=== PATIENT | female | born 1950 | race Caucasian/White ===

== ENCOUNTER 2019-03-07 11:17 | Outpatient (CLI) | payer MEDICARE, MEDICAID ==
[~2019-03-07 11:17] MED LIST: ACYC-202 PO; ALBU18HF2 INH; ALPR-624 PO; ASPI-1265 PO; ATEN-169 PO; ATOR40TA PO; CYCL-394 PO; DIPH-915 PO; DIPH1TAB PO; DIPH25CA83 PO; DOCU100C40 PO; ESTR10TA VG; FLUT1DIS INH; LOSA50TA3 PO; LYR25C PO; METF500T PO; MOME17SP NS; NITR0.4T51 SL; OMEP40CA13 PO; PER10325T PO; POTA8CAP20 PO; PRED20TA PO; PROM25TA14 PO; RANI-648 PO; RES15C PO; ROPI0.2534 PO
== END 2019-03-07 23:59 | disposition home or self-care (01) ==
LOC: RAD 11:17
PROVIDERS: ATTEND Physician Assistant Medical
DX: R55 Syncope and collapse (principal); R40.0 Somnolence; I10 Essential (primary) hypertension; J44.9 Chronic obstructive pulmonary disease, unspecified; F17.210 Nicotine dependence, cigarettes, uncomplicated; Z85.828 Personal history of other malignant neoplasm of skin; Z79.899 Other long term (current) drug therapy
CPT/HCPCS: 95819

== ENCOUNTER 2019-06-21 00:45 | Inpatient (IN) | payer MEDICARE, MEDICAID ==
[2019-06-21] VITALS (17 sets, daily range): BP systolic 106–149; BP diastolic 32–64
[~2019-06-21] VITALS: Ht 170.2 cm; Wt 72.7 kg
--- NOTE | 2019-06-21 00:54 | NUR ---
nitro patch removed
[2019-06-21 01:21] LABS: BASOPHILS # (AUTO) 0.1 X10'3 (0-0.2); BASOPHILS % (AUTO) 0.8 % (0-1); EOSINOPHILS # (AUTO) 0.1 X10'3 (0-0.9); EOSINOPHILS % (AUTO) 0.8 % (0-6); LYMPHOCYTES % (AUTO) 15.9 % (21-51); MEAN CORPUSCULAR HEMOGLOBIN 19.3 PG (27.0-31.0); MEAN CORPUSCULAR HGB CONC 30.2 g/dL (33.0-36.5); MEAN CORPUSCULAR VOLUME 63.7 FL (78-98); MONOCYTES # (AUTO) 1.2 X10'3 (0-0.9); MONOCYTES % (AUTO) 9.6 % (2-12); NEUTROPHILS # (AUTO) 9.2 X10'3 (1.8-7.7); NEUTROPHILS % (AUTO) 72.9 % (42-75); PLATELET COUNT 365 X10'3 (140-440); RED BLOOD COUNT 2.36 X10'6 (4.20-5.60); RED CELL DISTRIBUTION WIDTH 19.6 % (11.5-14.5); WHITE BLOOD COUNT 12.7 X10'3 (4.5-11.0)
[2019-06-21 01:22] LABS: PARTIAL THROMBOPLASTIN TIME 25 SECONDS (22-32)
[2019-06-21] MEDS ORDERED: AMLO2.5T2 PO (01:22)
[2019-06-21] MEDS ORDERED: GABA300C PO (01:22)
[2019-06-21] MEDS ORDERED: PHEN-887 PO (01:22)
[2019-06-21] MEDS ORDERED: LIDO700A32 TOP (01:22)
[2019-06-21] MEDS ORDERED: CYAN-51 PO (01:22)
[2019-06-21] MEDS ORDERED: MAGN296S50 PO (01:22)
[2019-06-21] MEDS ORDERED: APIX5TAB3 PO (01:26)
[2019-06-21 01:27] LABS: HEMOGLOBIN 4.5 g/dl (12.0-16.0)
[2019-06-21 01:28] LABS: ALANINE AMINOTRANSFERASE 16 U/L (12-78); ALBUMIN/GLOBULIN RATIO 0.9 (1.1-1.5); ALKALINE PHOSPHATASE 118 IU/L (46-116); ANION GAP 10 (8-16); ASPARTATE AMINO TRANSFERASE 16 U/L (10-37); BILIRUBIN,TOTAL 0.2 MG/DL (0.1-1.0); BLOOD UREA NITROGEN 11 MG/DL (7-18); BUN/CREATININE RATIO 13.8 (6.6-38.0); CALCIUM 8.6 MG/DL (8.5-10.1); CHLORIDE 106 MMOL/L (99-107); GLUCOSE 105 MG/DL (70-104); POTASSIUM 3.7 MMOL/L (3.5-5.1); SODIUM 140 MMOL/L (135-145); TOTAL CARBON DIOXIDE 23.6 MMOL/L (24-32); TOTAL PROTEIN 6.3 G/DL (6.4-8.2); eGFR 72 ML/MIN
[2019-06-21] MEDS ORDERED: tranexamic acid 100mg/ml inj. IV ONE (01:30)
[2019-06-21] MEDS ORDERED: TRANEXAMIC ACID 1 GM IN NACL,ISO-OS 100 ML IV ONE (01:35)
--- NOTE | 2019-06-21 02:22 | NUR ---
I tucked her into bed with warmed blankets and dimmed the lights with the call light on her pillow and she is comfy.
[2019-06-21 03:12] LABS: PLATELET ESTIMATE NORMAL
[2019-06-21 03:13] LABS: ELLIPTOCYTES 1+; HYPOCHROMASIA 3+
[2019-06-21 03:14] LABS: ANISOCYTOSIS 2+; MICROCYTOSIS 2+
[2019-06-21] MEDS ORDERED: morphine 2 MG/ML inj. syringe IV PRN (03:15)
[2019-06-21] MEDS ORDERED: nitroGLYCERIN 0.4mg SUBLingual tab SL PRN (03:20)
[2019-06-21] MEDS ORDERED: albuterol 2.5 MG/3 ML nebule NEB PRN (04:00)
[2019-06-21 04:09] LABS: CLARITY,URINE SLIGHTLY CLOUDY (Clear); COLOR,URINE YELLOW (Yellow); GLUCOSE, URINE NEGATIVE (Neg); KETONES,URINE NEGATIVE (Neg); LEUKOCYTE ESTERASE ,URINE NEGATIVE (Neg); NITRITES, URINE POSITIVE (Neg); OCCULT BLOOD,URINE NEGATIVE (Neg); PROTEIN,URINE NEGATIVE (Neg); UA COLLECTION TYPE CLN CATCH MIDSTREAM; UROBILINOGEN,URINE 0.2 E.U/dL (0.2-1.0)
--- NOTE | 2019-06-21 04:14 | NUR ---
pt arrived on PCU unit on a gurney from the ED, pt ambulated from gurney to bed. Pt is alert and oriented and does not seem to be in distress at this time. Will start IV fluids and continue to monitor pt
[2019-06-21 04:18] LABS: BACTERIA,URINE 3+ /HPF (Neg); RBC,URINE NONE SEEN /HPF (0-2); SQUAMOUS EPITHELIAL CELL,UR FEW /LPF (FEW); WBC,URINE 0-4 /HPF (0-4)
--- NOTE | 2019-06-21 04:45 | NUR ---
spoke with provider about possibly wanting to infuse another unit of blood with a Hgb of 4.5 and Hct of 15, order was to wait for results from AM labs, will continue to monitor pt
[2019-06-21] MEDS: normal saline 1000ml 1,000 ML IV SCH ×3 (05:02→17:41)
--- NOTE | 2019-06-21 06:00 | NUR ---
Problems reprioritized. Patient report given, questions answered & plan of care reviewed with Gaviota SUH.
[2019-06-21 06:20] LABS: BASOPHILS # (AUTO) 0.1 X10'3 (0-0.2); BASOPHILS % (AUTO) 0.5 % (0-1); EOSINOPHILS # (AUTO) 0.3 X10'3 (0-0.9); EOSINOPHILS % (AUTO) 2.3 % (0-6); LYMPHOCYTES # (AUTO) 2.3 X10'3 (1.1-4.8); LYMPHOCYTES % (AUTO) 20.1 % (21-51); MEAN CORPUSCULAR HEMOGLOBIN 21.3 PG (27.0-31.0); MEAN CORPUSCULAR HGB CONC 31.3 g/dL (33.0-36.5); MEAN CORPUSCULAR VOLUME 68.1 FL (78-98); MEAN PLATELET VOLUME 7.2 FL (7.4-10.4); MONOCYTES # (AUTO) 1.3 X10'3 (0-0.9); MONOCYTES % (AUTO) 11.7 % (2-12); NEUTROPHILS # (AUTO) 7.4 X10'3 (1.8-7.7); NEUTROPHILS % (AUTO) 65.4 % (42-75); PLATELET COUNT 323 X10'3 (140-440); RED BLOOD COUNT 2.77 X10'6 (4.20-5.60); RED CELL DISTRIBUTION WIDTH 23.6 % (11.5-14.5); WHITE BLOOD COUNT 11.3 X10'3 (4.5-11.0)
[2019-06-21 06:33] LABS: HEMATOCRIT 18.8 % (35.0-45.0); HEMOGLOBIN 5.9 g/dl (12.0-16.0)
--- NOTE | 2019-06-21 06:40 | NUR ---
Patient in room PCU 3022. I have received report from VIKASH Loyd and had the opportunity to ask questions and assume patient care. Patient alert and awake in bed. All needs met at this time. Will continue to monitor.
--- NOTE | 2019-06-21 06:44 | NUR ---
Critical Results Hgb 5.9 [address] Lora. No new orders.
[2019-06-21 06:59] LABS: ALANINE AMINOTRANSFERASE 15 U/L (12-78); ALBUMIN 2.9 G/DL (3.4-5.0); ALBUMIN/GLOBULIN RATIO 0.9 (1.1-1.5); ALKALINE PHOSPHATASE 111 IU/L (46-116); ANION GAP 9 (8-16); ASPARTATE AMINO TRANSFERASE 17 U/L (10-37); BLOOD UREA NITROGEN 8 MG/DL (7-18); BUN/CREATININE RATIO 10.8 (6.6-38.0); CALCIUM 8.1 MG/DL (8.5-10.1); CHLORIDE 105 MMOL/L (99-107); CREATININE 0.74 MG/DL (0.40-0.90); GLUCOSE 83 MG/DL (70-104); POTASSIUM 3.4 MMOL/L (3.5-5.1); SODIUM 139 MMOL/L (135-145); TOTAL CARBON DIOXIDE 25.2 MMOL/L (24-32); TOTAL PROTEIN 6.1 G/DL (6.4-8.2); eGFR 79 ML/MIN
[2019-06-21 07:29] LABS: ANISOCYTOSIS 3+; HYPOCHROMASIA 2+; MICROCYTOSIS 2+; PLATELET ESTIMATE NORMAL
[2019-06-21 07:34] LABS: POLYCHROMASIA FEW; SCHISTOCYTES FEW
[2019-06-21 07:35] LABS: ELLIPTOCYTES FEW
[2019-06-21] MEDS: LIDOcaine 5% patch TP SCH (08:00)
[2019-06-21] MEDS: albuterol 2.5 MG/3 ML nebule NEB SCH ×3 (08:13→20:56)
[2019-06-21] MEDS: budesonide 0.5mg/2ml UD nebule IH SCH ×2 (08:13→20:56)
[2019-06-21] MEDS: pantoprazole 40 MG vial IV SCH ×2 (08:26→20:18)
[2019-06-21] MEDS: losartan 50mg tablet PO SCH (08:27)
[2019-06-21] MEDS: gabapentin 300mg capsule PO SCH ×3 (08:27→20:07)
[2019-06-21] MEDS: cyclobenzaprine 10mg tablet PO SCH ×3 (08:28→20:06)
[2019-06-21] MEDS: amLODIPine 5mg tablet PO SCH (08:28)
[2019-06-21] MEDS: oxyCODONE/APAP 10/325mg tablet PO PRN ×3 (08:29→23:34)
--- NOTE | 2019-06-21 10:13 | NUR ---
Dr. Gutierrez at bedside, new orders for 1 unit of PRBCs and Change diet to clear liquid.
[2019-06-21] MEDS ORDERED: PEG 3350/Na sulf,bicarb,Cl/KCl oral sol 4 liter bottle PO ONE (11:30)
--- NOTE | 2019-06-21 13:21 | NUR ---
PAGER ID: [phone] MESSAGE: [phone]: Therese Chaudhary. Patient would like an order for a nicotine patch. She is an everyday smoker. Thanks! Gaviota [phone]
[2019-06-21] MEDS ORDERED: magnesium 4gm in 100ml NS 100 ML IV PRN (15:35)
[2019-06-21] MEDS ORDERED: potassium CL 10mEq/100ml bag 100 ML IV PRN (15:35)
[2019-06-21] MEDS ORDERED: magnesium Cl slow-release 64mg tablet PO PRN (15:35)
[2019-06-21] MEDS ORDERED: potassium Cl 20 mEq SR tablet PO PRN (15:35)
--- NOTE | 2019-06-21 15:36 | NUR ---
New order per Dr. Gutierrez for Mg and K replacement protocol.
--- NOTE | 2019-06-21 15:45 | NUR ---
Page sent to Dr. Gutierrez regarding nicotine patch. PAGER ID: [phone] MESSAGE: re [phone] Therese Chaudhary: Pt requesting Nicotine patch. She smokes 1 PPD for several years. Please advise. Thanks, Gaviota x [phone]
[2019-06-21 16:13] LABS: HEMATOCRIT 26.5 % (35.0-45.0); HEMOGLOBIN 8.7 g/dl (12.0-16.0); MEAN CORPUSCULAR HEMOGLOBIN 23.9 PG (27.0-31.0); MEAN CORPUSCULAR HGB CONC 32.8 g/dL (33.0-36.5); MEAN CORPUSCULAR VOLUME 72.9 FL (78-98); PLATELET COUNT 303 X10'3 (140-440); RED BLOOD COUNT 3.64 X10'6 (4.20-5.60); RED CELL DISTRIBUTION WIDTH 24.1 % (11.5-14.5); WHITE BLOOD COUNT 10.5 X10'3 (4.5-11.0)
[2019-06-21] MEDS: potassium Cl 20 mEq SR tablet PO PRN ×2 (16:15→20:07)
[2019-06-21] MEDS: nicotine 14mg patch - 24hr TD SCH (16:19)
--- NOTE | 2019-06-21 19:04 | NUR ---
Problems reprioritized. Patient report given, questions answered & plan of care reviewed with VIKASH Serrato.
--- NOTE | 2019-06-21 19:12 | NUR ---
Patient in room PCU 3022. I have received report from Gaviota SUH and had the opportunity to ask questions and assume patient care.
--- NOTE | 2019-06-21 19:12 | NUR ---
Patient in room PCU 3022. I have received report from Gaviota SUH and had the opportunity to ask questions and assume patient care.
[2019-06-21] MEDS: ROPINIRole 0.25mg tablet PO SCH (20:06)
[2019-06-21] MEDS: atorvastatin 20mg tablet PO SCH (20:06)
[2019-06-21] MEDS: ondansetron/PF 4mg/2ml inj IV PRN (20:17)
[2019-06-21] MEDS: morphine 2 MG/ML inj. syringe IV PRN (20:24)
[2019-06-22] VITALS (17 sets, daily range): BP systolic 119–160; BP diastolic 41–70
[2019-06-22] MEDS: morphine 2 MG/ML inj. syringe IV PRN ×3 (03:00→19:04)
[2019-06-22] MEDS: ondansetron/PF 4mg/2ml inj IV PRN ×2 (03:00→11:36)
[2019-06-22] MEDS: albuterol 2.5 MG/3 ML nebule NEB SCH ×4 (03:07→20:14)
[2019-06-22] MEDS: normal saline 1000ml 1,000 ML IV SCH ×2 (05:34→16:54)
[2019-06-22 05:59] LABS: BASOPHILS # (AUTO) 0.1 X10'3 (0-0.2); BASOPHILS % (AUTO) 0.5 % (0-1); EOSINOPHILS # (AUTO) 0.3 X10'3 (0-0.9); EOSINOPHILS % (AUTO) 2.3 % (0-6); HEMATOCRIT 25.2 % (35.0-45.0); HEMOGLOBIN 8.2 g/dl (12.0-16.0); LYMPHOCYTES # (AUTO) 2.3 X10'3 (1.1-4.8); MEAN CORPUSCULAR HEMOGLOBIN 23.4 PG (27.0-31.0); MEAN CORPUSCULAR HGB CONC 32.5 g/dL (33.0-36.5); MEAN CORPUSCULAR VOLUME 71.9 FL (78-98); MEAN PLATELET VOLUME 7.2 FL (7.4-10.4); MONOCYTES # (AUTO) 1.9 X10'3 (0-0.9); NEUTROPHILS # (AUTO) 7.6 X10'3 (1.8-7.7); NEUTROPHILS % (AUTO) 62.2 % (42-75); PLATELET COUNT 300 X10'3 (140-440); RED CELL DISTRIBUTION WIDTH 23.9 % (11.5-14.5); WHITE BLOOD COUNT 12.2 X10'3 (4.5-11.0)
--- NOTE | 2019-06-22 06:03 | NUR ---
Patient in room PCU 3019. I have received report from VIKASH Serrato and had the opportunity to ask questions and assume patient care.
--- NOTE | 2019-06-22 06:03 | NUR ---
Problems reprioritized. Patient report given, questions answered & plan of care reviewed with Gaviota SUH.
--- NOTE | 2019-06-22 06:04 | NUR ---
Problems reprioritized. Patient report given, questions answered & plan of care reviewed with Gaviota Chen RN.
[2019-06-22 06:24] LABS: ALANINE AMINOTRANSFERASE 13 U/L (12-78); ALBUMIN 2.9 G/DL (3.4-5.0); ALBUMIN/GLOBULIN RATIO 0.9 (1.1-1.5); ALKALINE PHOSPHATASE 102 IU/L (46-116); ANION GAP 10 (8-16); ASPARTATE AMINO TRANSFERASE 18 U/L (10-37); BILIRUBIN,TOTAL 0.4 MG/DL (0.1-1.0); BLOOD UREA NITROGEN 3 MG/DL (7-18); BUN/CREATININE RATIO 4.8 (6.6-38.0); CALCIUM 7.7 MG/DL (8.5-10.1); CHLORIDE 107 MMOL/L (99-107); CREATININE 0.62 MG/DL (0.40-0.90); GLUCOSE 88 MG/DL (70-104); MAGNESIUM 1.3 MG/DL (1.5-2.4); POTASSIUM 3.1 MMOL/L (3.5-5.1); SODIUM 145 MMOL/L (135-145); TOTAL CARBON DIOXIDE 28.4 MMOL/L (24-32); TOTAL PROTEIN 6.1 G/DL (6.4-8.2); eGFR > 90 ML/MIN
[2019-06-22] MEDS: losartan 50mg tablet PO SCH (07:35)
[2019-06-22] MEDS: pantoprazole 40 MG vial IV SCH (07:35)
[2019-06-22] MEDS: cyclobenzaprine 10mg tablet PO SCH ×3 (07:35→20:45)
[2019-06-22] MEDS: potassium Cl 20 mEq SR tablet PO PRN ×2 (07:35→20:44)
[2019-06-22] MEDS: nicotine 14mg patch - 24hr TD SCH (07:35)
[2019-06-22] MEDS: gabapentin 300mg capsule PO SCH ×3 (07:36→20:45)
[2019-06-22] MEDS: amLODIPine 5mg tablet PO SCH (07:36)
[2019-06-22] MEDS: LIDOcaine 5% patch TP SCH (07:36)
[2019-06-22] MEDS: oxyCODONE/APAP 10/325mg tablet PO PRN (07:36)
[2019-06-22 07:48] LABS: ANISOCYTOSIS 3+; MICROCYTOSIS 1+; PLATELET ESTIMATE NORMAL; TOTAL CELLS COUNTED 100
[2019-06-22 07:49] LABS: HYPOCHROMASIA 2+; POLYCHROMASIA 1+
[2019-06-22] MEDS: budesonide 0.5mg/2ml UD nebule IH SCH ×2 (10:47→20:14)
[2019-06-22] MEDS ORDERED: fentaNYL/PF 50MCG/1 ML 2ML syringe ONE (14:55)
[2019-06-22] MEDS ORDERED: MIDAZolam 5mg/5ml vial ONE (14:55)
--- NOTE | 2019-06-22 15:04 | NUR ---
Patient off unit having colonoscopy.
--- NOTE | 2019-06-22 16:45 | NUR ---
Patient returned to unit via wheel chair. Patient alert and oriented, denies any distress. Will continue to monitor.
--- NOTE | 2019-06-22 18:23 | NUR ---
Problems reprioritized. Patient report given, questions answered & plan of care reviewed with VIKASH William.
--- NOTE | 2019-06-22 18:24 | NUR ---
Patient in room PCU 3022. I have received report from Gaviota Chen RN and had the opportunity to ask questions and assume patient care.
[2019-06-22] MEDS: pantoprazole 40mg Tablet.DR PO SCH (19:05)
[2019-06-22] MEDS: atorvastatin 20mg tablet PO SCH (20:45)
[2019-06-22] MEDS: ROPINIRole 0.25mg tablet PO SCH (20:45)
[2019-06-22] MEDS: temazepam 15mg capsule PO PRN (21:44)
[2019-06-22] MEDS: diphenhydrAMINE 25mg capsule PO PRN (21:44)
[2019-06-23 02:00] VITALS: BP 128/54
[2019-06-23] MEDS: diphenhydrAMINE 25mg capsule PO PRN ×3 (03:01→16:55)
[2019-06-23] MEDS: normal saline 1000ml 1,000 ML IV SCH ×2 (05:13→15:47)
[2019-06-23 06:00] VITALS: BP 155/63
--- NOTE | 2019-06-23 06:12 | NUR ---
Patient in room PCU 3022. I have received report from Stewart SUH and had the opportunity to ask questions and assume patient care.
--- NOTE | 2019-06-23 06:15 | NUR ---
Problems reprioritized. Patient report given, questions answered & plan of care reviewed with VIKASH Mabry.
[2019-06-23 06:20] LABS: BASOPHILS # (AUTO) 0.1 X10'3 (0-0.2); EOSINOPHILS # (AUTO) 0.2 X10'3 (0-0.9); EOSINOPHILS % (AUTO) 2.6 % (0-6); HEMATOCRIT 26.2 % (35.0-45.0); HEMOGLOBIN 8.6 g/dl (12.0-16.0); LYMPHOCYTES # (AUTO) 1.8 X10'3 (1.1-4.8); LYMPHOCYTES % (AUTO) 19.2 % (21-51); MEAN CORPUSCULAR HEMOGLOBIN 23.8 PG (27.0-31.0); MEAN CORPUSCULAR HGB CONC 32.9 g/dL (33.0-36.5); MEAN CORPUSCULAR VOLUME 72.5 FL (78-98); MEAN PLATELET VOLUME 7.1 FL (7.4-10.4); MONOCYTES # (AUTO) 1.6 X10'3 (0-0.9); NEUTROPHILS # (AUTO) 5.5 X10'3 (1.8-7.7); NEUTROPHILS % (AUTO) 60.2 % (42-75); PLATELET COUNT 290 X10'3 (140-440); RED BLOOD COUNT 3.62 X10'6 (4.20-5.60); RED CELL DISTRIBUTION WIDTH 24.9 % (11.5-14.5); WHITE BLOOD COUNT 9.1 X10'3 (4.5-11.0)
[2019-06-23 06:51] LABS: ALANINE AMINOTRANSFERASE 13 U/L (12-78); ALBUMIN 2.8 G/DL (3.4-5.0); ALBUMIN/GLOBULIN RATIO 0.8 (1.1-1.5); ALKALINE PHOSPHATASE 98 IU/L (46-116); ANION GAP 9 (8-16); ASPARTATE AMINO TRANSFERASE 12 U/L (10-37); BILIRUBIN,TOTAL 0.5 MG/DL (0.1-1.0); BLOOD UREA NITROGEN 3 MG/DL (7-18); BUN/CREATININE RATIO 4.5 (6.6-38.0); CALCIUM 8.3 MG/DL (8.5-10.1); CHLORIDE 106 MMOL/L (99-107); CREATININE 0.67 MG/DL (0.40-0.90); GLUCOSE 89 MG/DL (70-104); MAGNESIUM 1.5 MG/DL (1.5-2.4); POTASSIUM 3.4 MMOL/L (3.5-5.1); SODIUM 144 MMOL/L (135-145); TOTAL CARBON DIOXIDE 28.9 MMOL/L (24-32); TOTAL PROTEIN 6.2 G/DL (6.4-8.2); eGFR 88 ML/MIN
[2019-06-23 07:37] LABS: ANISOCYTOSIS 3+; MICROCYTOSIS 1+; PLATELET ESTIMATE NORMAL
[2019-06-23 07:38] LABS: HYPOCHROMASIA 1+; POLYCHROMASIA FEW
[2019-06-23 07:39] LABS: ELLIPTOCYTES FEW; SCHISTOCYTES FEW
[2019-06-23] MEDS: budesonide 0.5mg/2ml UD nebule IH SCH ×2 (07:52→20:48)
[2019-06-23] MEDS: albuterol 2.5 MG/3 ML nebule NEB SCH ×4 (07:52→20:48)
[2019-06-23] MEDS: cyclobenzaprine 10mg tablet PO SCH ×3 (08:34→20:56)
[2019-06-23] MEDS: gabapentin 300mg capsule PO SCH ×3 (08:34→20:56)
[2019-06-23] MEDS: losartan 50mg tablet PO SCH (08:35)
[2019-06-23] MEDS: amLODIPine 5mg tablet PO SCH (08:35)
[2019-06-23] MEDS: pantoprazole 40mg Tablet.DR PO SCH ×2 (08:35→19:32)
[2019-06-23] MEDS: LIDOcaine 5% patch TP SCH (08:36)
[2019-06-23] MEDS: nicotine 14mg patch - 24hr TD SCH (08:36)
[2019-06-23] MEDS: potassium Cl 20 mEq SR tablet PO PRN ×3 (08:51→21:51)
[2019-06-23 11:00] VITALS: BP 131/46
[2019-06-23 15:00] VITALS: BP 126/45
[2019-06-23] MEDS ORDERED: ciprofloxacin 250mg tablet PO SCH (15:00)
[2019-06-23] MEDS: metroNIDAZOLE 500mg tablet PO SCH ×2 (15:48→23:19)
--- NOTE | 2019-06-23 16:41 | NUR ---
promotional table spacer PAGER ID: [phone] MESSAGE: Re: Therese Chaudhary, Room: 3022. Pt complaining of headache. No order for Tylenol, can I put order in for Tylenol? -Raghavendra [facility] [id number] Dr. Gutierrez paged concerning pt's headache and order for tylenol.
[2019-06-23] MEDS: oxyCODONE/APAP 10/325mg tablet PO PRN (16:56)
[2019-06-23 18:00] VITALS: BP 131/46
--- NOTE | 2019-06-23 18:00 | NUR ---
Problems reprioritized. Patient report given, questions answered & plan of care reviewed with Angy SUH.
[2019-06-23] MEDS: ciprofloxacin 250mg tablet PO SCH (19:32)
[2019-06-23] MEDS: atorvastatin 20mg tablet PO SCH (20:56)
[2019-06-23] MEDS: ROPINIRole 0.25mg tablet PO SCH (20:56)
[2019-06-23] MEDS: temazepam 15mg capsule PO PRN (21:56)
[2019-06-23 22:00] VITALS: BP 137/59
[2019-06-24] MEDS: normal saline 1000ml 1,000 ML IV SCH (01:15)
[2019-06-24] MEDS: albuterol 2.5 MG/3 ML nebule NEB SCH ×4 (02:46→20:15)
[2019-06-24 03:00] VITALS: BP 127/53
[2019-06-24] MEDS: oxyCODONE/APAP 10/325mg tablet PO PRN ×3 (03:11→20:07)
[2019-06-24 05:14] LABS: BASOPHILS # (AUTO) 0.1 X10'3 (0-0.2); BASOPHILS % (AUTO) 0.7 % (0-1); EOSINOPHILS # (AUTO) 0.2 X10'3 (0-0.9); EOSINOPHILS % (AUTO) 2.9 % (0-6); HEMATOCRIT 23.7 % (35.0-45.0); HEMOGLOBIN 7.7 g/dl (12.0-16.0); LYMPHOCYTES # (AUTO) 1.6 X10'3 (1.1-4.8); LYMPHOCYTES % (AUTO) 19.3 % (21-51); MEAN CORPUSCULAR HEMOGLOBIN 23.9 PG (27.0-31.0); MEAN CORPUSCULAR HGB CONC 32.6 g/dL (33.0-36.5); MEAN CORPUSCULAR VOLUME 73.1 FL (78-98); MEAN PLATELET VOLUME 7.2 FL (7.4-10.4); MONOCYTES # (AUTO) 1.1 X10'3 (0-0.9); NEUTROPHILS # (AUTO) 5.1 X10'3 (1.8-7.7); NEUTROPHILS % (AUTO) 63.1 % (42-75); PLATELET COUNT 290 X10'3 (140-440); RED BLOOD COUNT 3.23 X10'6 (4.20-5.60); RED CELL DISTRIBUTION WIDTH 25.3 % (11.5-14.5)
[2019-06-24 05:19] LABS: ALANINE AMINOTRANSFERASE 11 U/L (12-78); ALBUMIN 2.7 G/DL (3.4-5.0); ALBUMIN/GLOBULIN RATIO 0.8 (1.1-1.5); ALKALINE PHOSPHATASE 91 IU/L (46-116); ANION GAP 7 (8-16); ASPARTATE AMINO TRANSFERASE 10 U/L (10-37); BILIRUBIN,TOTAL 0.3 MG/DL (0.1-1.0); BLOOD UREA NITROGEN 6 MG/DL (7-18); BUN/CREATININE RATIO 7.8 (6.6-38.0); CALCIUM 8.4 MG/DL (8.5-10.1); CHLORIDE 106 MMOL/L (99-107); CREATININE 0.77 MG/DL (0.40-0.90); GLUCOSE 125 MG/DL (70-104); MAGNESIUM 1.5 MG/DL (1.5-2.4); POTASSIUM 3.8 MMOL/L (3.5-5.1); SODIUM 141 MMOL/L (135-145); TOTAL CARBON DIOXIDE 28.4 MMOL/L (24-32); TOTAL PROTEIN 6.1 G/DL (6.4-8.2); eGFR 75 ML/MIN
[2019-06-24 06:00] VITALS: BP 139/51
--- NOTE | 2019-06-24 06:26 | NUR ---
Problems reprioritized. Patient report given, questions answered & plan of care reviewed with flying teacher. Addendum: 06/24/19 at 0627 by Angy Cotter RN Amended: Links added.
--- NOTE | 2019-06-24 06:30 | NUR ---
Patient in room PCU 3022. I have received report from Angy SUH and had the opportunity to ask questions and assume patient care.
[2019-06-24] MEDS: LIDOcaine 5% patch TP SCH (08:16)
[2019-06-24] MEDS: nicotine 14mg patch - 24hr TD SCH (08:17)
[2019-06-24] MEDS: metroNIDAZOLE 500mg tablet PO SCH ×2 (08:17→16:56)
[2019-06-24] MEDS: losartan 50mg tablet PO SCH (08:17)
[2019-06-24] MEDS: cyclobenzaprine 10mg tablet PO SCH ×3 (08:17→21:32)
[2019-06-24] MEDS: amLODIPine 5mg tablet PO SCH (08:17)
[2019-06-24] MEDS: ciprofloxacin 250mg tablet PO SCH ×2 (08:18→19:58)
[2019-06-24] MEDS: pantoprazole 40mg Tablet.DR PO SCH ×2 (08:18→19:58)
[2019-06-24] MEDS: gabapentin 300mg capsule PO SCH ×3 (08:18→21:32)
[2019-06-24] MEDS: budesonide 0.5mg/2ml UD nebule IH SCH ×2 (08:25→20:15)
[2019-06-24 09:15] LABS: ANISOCYTOSIS 3+; HYPOCHROMASIA 1+; MICROCYTOSIS 1+; PLATELET ESTIMATE NORMAL; POLYCHROMASIA 1+
[2019-06-24 09:16] LABS: ELLIPTOCYTES FEW; SCHISTOCYTES FEW
[2019-06-24 11:00] VITALS: BP 118/44
[2019-06-24] MEDS: morphine 2 MG/ML inj. syringe IV PRN ×3 (12:52→23:08)
[2019-06-24 15:00] VITALS: BP 142/62
[2019-06-24] MEDS: diphenhydrAMINE 25mg capsule PO PRN ×2 (16:57→21:32)
[2019-06-24 18:00] VITALS: BP 140/44
--- NOTE | 2019-06-24 18:27 | NUR ---
Problems reprioritized. Patient report given, questions answered & plan of care reviewed with Prudence RN. Patient stable at time of transfer of care.
--- NOTE | 2019-06-24 18:53 | NUR ---
Patient in room PCU 3022. I have received report from Pauline SUH and had the opportunity to ask questions and assume patient care. Patient is awake annd had just finished eating dinner. She denies having pain.
[2019-06-24] MEDS: lactobacillus rhamnosus 10,000 MMU CELLS/CAPSULE PO SCH (19:58)
[2019-06-24] MEDS: atorvastatin 20mg tablet PO SCH (21:32)
[2019-06-24] MEDS: ROPINIRole 0.25mg tablet PO SCH (21:32)
[2019-06-24 22:00] VITALS: BP 123/51
[2019-06-24] MEDS: ondansetron/PF 4mg/2ml inj IV PRN (23:13)
[2019-06-25] MEDS: metroNIDAZOLE 500mg tablet PO SCH ×2 (00:26→07:09)
[2019-06-25] MEDS: temazepam 15mg capsule PO PRN (00:26)
[2019-06-25 02:00] VITALS: BP 151/56
[2019-06-25] MEDS: albuterol 2.5 MG/3 ML nebule NEB SCH ×2 (03:53→08:42)
[2019-06-25] MEDS: morphine 2 MG/ML inj. syringe IV PRN ×2 (05:41→10:35)
[2019-06-25 06:00] VITALS: BP 138/51
--- NOTE | 2019-06-25 06:22 | NUR ---
Problems reprioritized. Patient report given, questions answered & plan of care reviewed with Luis SUH.
--- NOTE | 2019-06-25 06:22 | NUR ---
Patient in room PCU 3022. I have received report from VIKASH Jaeger and had the opportunity to ask questions and assume patient care.
[2019-06-25] MEDS: amLODIPine 5mg tablet PO SCH (07:09)
[2019-06-25] MEDS: lactobacillus rhamnosus 10,000 MMU CELLS/CAPSULE PO SCH (07:09)
[2019-06-25] MEDS: losartan 50mg tablet PO SCH (07:09)
[2019-06-25] MEDS: cyclobenzaprine 10mg tablet PO SCH ×2 (07:09→12:55)
[2019-06-25] MEDS: LIDOcaine 5% patch TP SCH (07:09)
[2019-06-25] MEDS: ciprofloxacin 250mg tablet PO SCH (07:09)
[2019-06-25] MEDS: pantoprazole 40mg Tablet.DR PO SCH (07:09)
[2019-06-25] MEDS: gabapentin 300mg capsule PO SCH ×2 (07:09→12:55)
[2019-06-25] MEDS: nicotine 14mg patch - 24hr TD SCH (07:10)
[2019-06-25] MEDS: oxyCODONE/APAP 10/325mg tablet PO PRN (07:15)
--- NOTE | 2019-06-25 07:22 | NUR ---
Problems reprioritized. Patient report given, questions answered & plan of care reviewed with VIKASH Goss.
[2019-06-25 08:06] LABS: BASOPHILS # (AUTO) 0.1 X10'3 (0-0.2); BASOPHILS % (AUTO) 0.7 % (0-1); EOSINOPHILS # (AUTO) 0.4 X10'3 (0-0.9); EOSINOPHILS % (AUTO) 5.3 % (0-6); HEMATOCRIT 24.1 % (35.0-45.0); HEMOGLOBIN 7.6 g/dl (12.0-16.0); LYMPHOCYTES # (AUTO) 1.6 X10'3 (1.1-4.8); LYMPHOCYTES % (AUTO) 22.7 % (21-51); MEAN CORPUSCULAR HEMOGLOBIN 23.5 PG (27.0-31.0); MEAN CORPUSCULAR HGB CONC 31.8 g/dL (33.0-36.5); MEAN PLATELET VOLUME 7.3 FL (7.4-10.4); MONOCYTES # (AUTO) 1.1 X10'3 (0-0.9); MONOCYTES % (AUTO) 15.5 % (2-12); NEUTROPHILS # (AUTO) 3.9 X10'3 (1.8-7.7); NEUTROPHILS % (AUTO) 55.8 % (42-75); PLATELET COUNT 289 X10'3 (140-440); RED BLOOD COUNT 3.25 X10'6 (4.20-5.60); RED CELL DISTRIBUTION WIDTH 26.1 % (11.5-14.5); WHITE BLOOD COUNT 6.9 X10'3 (4.5-11.0)
[2019-06-25] MEDS: budesonide 0.5mg/2ml UD nebule IH SCH (08:42)
[2019-06-25 10:20] LABS: PLATELET ESTIMATE NORMAL; POLYCHROMASIA 1+
[2019-06-25 10:21] LABS: ANISOCYTOSIS 3+; HYPOCHROMASIA 1+; MICROCYTOSIS 1+; SCHISTOCYTES FEW
[2019-06-25] MEDS: ondansetron/PF 4mg/2ml inj IV PRN (10:40)
[2019-06-25 11:00] VITALS: BP 127/65
[2019-06-25] MEDS ORDERED: METR500T PO (11:54)
[2019-06-25] MEDS ORDERED: CIPR250T4 PO (11:54)
--- NOTE | 2019-06-25 12:17 | NUR ---
PAGER ID: [phone] MESSAGE: VIKASH Goss, ext [phone], Jet, patient says you told her you would prescribe nicotine patches for her, can you add to DC orders?
[2019-06-25] MEDS ORDERED: NICO-687 TOP (12:18)
--- NOTE | 2019-06-25 14:45 | NUR ---
Received orders for patient discharge, patient IV removed, catheter tip intact, hemostasis achieved, telemetry removed. Patient able to dress herself, prescriptions called to [facility] in [place], [place] per pt request. Patient educated on new medications as well as to stop her eliquis until she sees Dr. Murillo per Dr. Gutierrez's discharge orders. Patient verbalized understanding of discharge teaching and will schedule follow up appt within a week. Patient left with family members, stable at time of discharge.
[2019-07-25] MEDS ORDERED: TRAZ-219 PO (07:32)
== END 2019-06-25 14:42 | disposition home or self-care (01) | DRG 394 ==
LOC: ER 00:45 → ED HOLD 03:15 → PCU 3S 04:22
PROVIDERS: ADMIT Internal Medicine; ATTEND Family Medicine
PROC: 30233N1 Transfusion of Nonautologous Red Blood Cells into Peripheral Vein, Percutaneous Approach (ICD-10-PCS; 2019-06-21)
PROC: 0DBN8ZX Excision of Sigmoid Colon, Via Natural or Artificial Opening Endoscopic, Diagnostic (ICD-10-PCS; principal; 2019-06-22)
PROC: 0DBH8ZZ Excision of Cecum, Via Natural or Artificial Opening Endoscopic (ICD-10-PCS; 2019-06-22)
DX: K55.039 Acute (reversible) ischemia of large intestine, extent unspecified (principal); D62 Acute posthemorrhagic anemia; K63.3 Ulcer of intestine; N39.0 Urinary tract infection, site not specified; K55.9 Vascular disorder of intestine, unspecified; K57.30 Diverticulosis of large intestine without perforation or abscess without bleeding; E87.6 Hypokalemia; I25.10 Atherosclerotic heart disease of native coronary artery without angina pectoris; K64.8 Other hemorrhoids; K63.5 Polyp of colon; E11.9 Type 2 diabetes mellitus without complications; F17.210 Nicotine dependence, cigarettes, uncomplicated; K21.9 Gastro-esophageal reflux disease without esophagitis; G89.29 Other chronic pain; G43.909 Migraine, unspecified, not intractable, without status migrainosus; F32.9 Major depressive disorder, single episode, unspecified; I10 Essential (primary) hypertension; J44.9 Chronic obstructive pulmonary disease, unspecified; Z86.73 Personal history of transient ischemic attack (TIA), and cerebral infarction without residual deficits; Z90.710 Acquired absence of both cervix and uterus; Z88.5 Allergy status to narcotic agent; Z88.8 Allergy status to other drugs, medicaments and biological substances; Z88.2 Allergy status to sulfonamides
CPT/HCPCS: 36415; 36430; 45380; 45385; 76937; 80053; 81001; 82948; 83735; 84145; 84484; 85025; 85027; 85610; 85730; 86885; 86900; 86901; 86920; 87077; 87081; 87088; 87186; 88305; 93005; 93975; 94640; 94760; 96374; 99152; 99153; 99285; A4620; C1773; C9113; G0378; J2250; J2270; J2405; J3010; J3490; J7030; J7040; J7626; P9016; Q0163

== ENCOUNTER 2019-07-25 06:47 | Day surgery (SDC) | payer MEDICARE, MEDICAID ==
[~2019-07-25] VITALS: Ht 168.9 cm; Wt 75.7 kg
[2019-07-25] VITALS (8 sets, daily range): BP systolic 136–169; BP diastolic 59–73
[~2019-07-25 06:47] MED LIST changes: -ALPR-624 PO; +AMLO2.5T2 PO; -ATEN-169 PO; +CIPR250T4 PO; +CYAN-51 PO; -DIPH-915 PO; -DIPH25CA83 PO; +GABA300C PO; +LIDO700A32 TOP; -LYR25C PO; +MAGN296S70 PO; -METF500T PO; +METR500T PO; -MOME17SP NS; -OMEP40CA13 PO; +PHEN-887 PO; -PRED20TA PO; -RANI-648 PO
[2019-07-25] MEDS ORDERED: normal saline 1000ml 1,000 ML IV PRN (07:05)
[2019-07-25] MEDS ORDERED: [UNRECOGNIZED DRUG - CODE] PO (07:32)
[2019-07-25] MEDS ORDERED: TRAZ-256 PO (07:32)
[2019-07-25] MEDS ORDERED: LANS15CA18 PO (07:32)
[2019-07-25] MEDS ORDERED: LOSA100T57 PO (07:32)
[2019-07-25] MEDS ORDERED: PHEN-888 PO (07:32)
[2019-07-25] MEDS ORDERED: SOTA80TA PO (07:32)
[2019-07-25] MEDS ORDERED: APIX5TAB3 PO (07:32)
[2019-07-25] MEDS ORDERED: PHEN-824 PO (07:32)
[2019-07-25 08:02] LABS: BASOPHILS # (AUTO) 0.2 X10'3 (0-0.2); BASOPHILS % (AUTO) 1.4 % (0-1); EOSINOPHILS # (AUTO) 0.4 X10'3 (0-0.9); EOSINOPHILS % (AUTO) 3.8 % (0-6); HEMATOCRIT 32.6 % (35.0-45.0); HEMOGLOBIN 10.4 g/dl (12.0-16.0); LYMPHOCYTES # (AUTO) 2.9 X10'3 (1.1-4.8); LYMPHOCYTES % (AUTO) 25.4 % (21-51); MEAN CORPUSCULAR HEMOGLOBIN 24.1 PG (27.0-31.0); MEAN CORPUSCULAR HGB CONC 31.9 g/dL (33.0-36.5); MEAN CORPUSCULAR VOLUME 75.5 FL (78-98); MEAN PLATELET VOLUME 7.3 FL (7.4-10.4); MONOCYTES # (AUTO) 1.1 X10'3 (0-0.9); MONOCYTES % (AUTO) 9.6 % (2-12); NEUTROPHILS # (AUTO) 6.8 X10'3 (1.8-7.7); NEUTROPHILS % (AUTO) 59.8 % (42-75); PLATELET COUNT 292 X10'3 (140-440); RED BLOOD COUNT 4.32 X10'6 (4.20-5.60); RED CELL DISTRIBUTION WIDTH 29.4 % (11.5-14.5); WHITE BLOOD COUNT 11.4 X10'3 (4.5-11.0)
[2019-07-25] MEDS ORDERED: methylPREDNISolone sod succ 125mg/2ml vial IV ONE (08:10)
[2019-07-25] MEDS ORDERED: diphenhydrAMINE 50 mg/ml inj IV ONE ×2 (08:10→08:30)
[2019-07-25 08:15] LABS: ALANINE AMINOTRANSFERASE 19 U/L (12-78); ALBUMIN 3.6 G/DL (3.4-5.0); ALKALINE PHOSPHATASE 130 IU/L (46-116); ANION GAP 8 (8-16); ASPARTATE AMINO TRANSFERASE 20 U/L (10-37); BILIRUBIN,TOTAL 0.1 MG/DL (0.1-1.0); BLOOD UREA NITROGEN 9 MG/DL (7-18); BUN/CREATININE RATIO 11.8 (6.6-38.0); CALCIUM 8.9 MG/DL (8.5-10.1); CHLORIDE 105 MMOL/L (99-107); CREATININE 0.76 MG/DL (0.40-0.90); GLUCOSE 105 MG/DL (70-104); SODIUM 142 MMOL/L (135-145); TOTAL CARBON DIOXIDE 29.1 MMOL/L (24-32); TOTAL PROTEIN 7.3 G/DL (6.4-8.2); eGFR 76 ML/MIN
[2019-07-25 08:16] LABS: POTASSIUM 4.1 MMOL/L (3.5-5.1)
[2019-07-25] MEDS ORDERED: midazolam 2 mg/2 ml injection IV PRN (08:30)
[2019-07-25] MEDS ORDERED: fentaNYL/PF 50MCG/1 ML 2ML syringe IV PRN (08:30)
[2019-07-25] MEDS ORDERED: LIDOcaine 1%/PF 5ML 10 MG/ML VIAL SQ ONE (08:30)
[2019-07-25] MEDS ORDERED: LIDOcaine 1%/PF 5ML 10 MG/ML VIAL ONE (08:31)
[2019-07-25] MEDS ORDERED: diphenhydrAMINE 50 mg/ml inj ONE (08:31)
[2019-07-25] MEDS ORDERED: fentaNYL/PF 50MCG/1 ML 2ML syringe ONE ×3 (08:32→09:33)
[2019-07-25] MEDS ORDERED: iohexol 300 MG/1 ML 50ml polymer ONE (08:32)
[2019-07-25] MEDS ORDERED: midazolam 2 mg/2 ml injection ONE ×3 (08:32→09:33)
[2019-07-25] MEDS ORDERED: iohexol 300mg/ml 100ml inj. ONE ×3 (08:32→10:00)
[2019-07-25] MEDS ORDERED: heparin 1,000 UNITS/NS 500ml 500 ML ONE (08:33)
[2019-07-25 08:51] LABS: PLATELET ESTIMATE NORMAL
[2019-07-25 08:52] LABS: ANISOCYTOSIS 3+; HYPOCHROMASIA 1+; MICROCYTOSIS 1+
[2019-07-25] MEDS ORDERED: heparin 1,000unit/ml 10ml vial 10 ML ONE (09:39)
[2019-07-25] MEDS ORDERED: hydrALAZINE 20mg/ml inj. IV ONE (10:03)
[2019-07-25] MEDS ORDERED: normal saline 1000ml 1,000 ML IV SCH (10:19)
== END 2019-07-25 13:40 | disposition home or self-care (01) ==
LOC: SSTAY O 06:47
PROVIDERS: ATTEND Radiology Vascular & Interventional Radiology
DX: K55.1 Chronic vascular disorders of intestine (principal); Z88.8 Allergy status to other drugs, medicaments and biological substances; Z88.2 Allergy status to sulfonamides; Z88.5 Allergy status to narcotic agent; Z91.09 Other allergy status, other than to drugs and biological substances; Z91.041 Radiographic dye allergy status; Z79.899 Other long term (current) drug therapy; Z79.82 Long term (current) use of aspirin; Z86.73 Personal history of transient ischemic attack (TIA), and cerebral infarction without residual deficits; Z90.710 Acquired absence of both cervix and uterus; Z72.89 Other problems related to lifestyle; Z98.890 Other specified postprocedural states; Z82.49 Family history of ischemic heart disease and other diseases of the circulatory system
CPT/HCPCS: 36245; 36415; 37236; 75726; 76937; 80053; 85025; 99152; 99153; C1760; C1769; C1876; C1894; J0360; J1200; J1644; J2250; J3010; J7030; Q9967; 37246; A6213; G0269

== ENCOUNTER 2019-10-11 19:50 | Inpatient (IN) | payer MEDICARE, MEDICAID ==
[~2019-10-11] VITALS: Ht 167.6 cm; Wt 75.0 kg
[2019-10-11] MEDS: normal saline 1000ml 1,000 ML IV SCH (04:00)
[~2019-10-11 19:50] MED LIST changes: +APIX5TAB3 PO; -CIPR250T4 PO; -CYAN-51 PO; +LANS15CA18 PO; -LIDO700A32 TOP; +LOSA100T57 PO; -MAGN296S70 PO; -METR500T PO; +PHEN-824 PO; -PHEN-887 PO; +PHEN-888 PO; -RES15C PO; +SOTA80TA PO; +TRAZ-256 PO; +[UNRECOGNIZED DRUG - CODE] PO
[2019-10-11 20:14] LABS: BASOPHILS # (AUTO) 0.1 X10'3 (0-0.2); BASOPHILS % (AUTO) 0.8 % (0-1); EOSINOPHILS # (AUTO) 0.2 X10'3 (0-0.9); EOSINOPHILS % (AUTO) 1.6 % (0-6); MEAN CORPUSCULAR HEMOGLOBIN 23.9 PG (27.0-31.0); MEAN CORPUSCULAR HGB CONC 32.1 g/dL (33.0-36.5); MEAN CORPUSCULAR VOLUME 74.4 FL (78-98); MEAN PLATELET VOLUME 7.1 FL (7.4-10.4); MONOCYTES % (AUTO) 9.8 % (2-12); NEUTROPHILS # (AUTO) 6.1 X10'3 (1.8-7.7); NEUTROPHILS % (AUTO) 58.8 % (42-75); PLATELET COUNT 322 X10'3 (140-440); RED BLOOD COUNT 1.91 X10'6 (4.20-5.60); RED CELL DISTRIBUTION WIDTH 26.4 % (11.5-14.5); WHITE BLOOD COUNT 10.4 X10'3 (4.5-11.0)
[2019-10-11 20:20] LABS: HEMATOCRIT 14.2 % (35.0-45.0); HEMOGLOBIN 4.6 g/dl (12.0-16.0)
[2019-10-11 20:36] LABS: ALANINE AMINOTRANSFERASE 8 U/L (12-78); ALBUMIN 3.1 G/DL (3.4-5.0); ALBUMIN/GLOBULIN RATIO 0.9 (1.1-1.5); ALKALINE PHOSPHATASE 108 IU/L (46-116); ANION GAP 6 (8-16); ASPARTATE AMINO TRANSFERASE 11 U/L (10-37); BILIRUBIN,TOTAL 0.2 MG/DL (0.1-1.0); BLOOD UREA NITROGEN 9 MG/DL (7-18); BUN/CREATININE RATIO 10.2 (6.6-38.0); CHLORIDE 107 MMOL/L (99-107); CREATININE 0.88 MG/DL (0.40-0.90); GLUCOSE 109 MG/DL (70-104); POTASSIUM 3.8 MMOL/L (3.5-5.1); SODIUM 140 MMOL/L (135-145); TOTAL PROTEIN 6.5 G/DL (6.4-8.2); eGFR 64 ML/MIN
[2019-10-11 20:46] LABS: PLATELET ESTIMATE NORMAL
[2019-10-11 20:49] LABS: ANISOCYTOSIS 2+
[2019-10-11 20:50] LABS: HYPOCHROMASIA 2+; MICROCYTOSIS 2+
[2019-10-11 21:18] VITALS: BP 114/46
[2019-10-11] MEDS: pantoprazole 40MG/NS 100ML BAG 100 ML IV SCH (21:24)
[2019-10-11] MEDS ORDERED: morphine 4 MG/ML inj SYRINge IV ONE (21:30)
[2019-10-11 21:33] VITALS: BP 131/52
[2019-10-11] MEDS ORDERED: ondansetron/PF 4mg/2ml inj IV ONE (21:40)
[2019-10-11 22:09] VITALS: BP 122/46
[2019-10-11 22:12] VITALS: BP 122/46
[2019-10-11 22:27] VITALS: BP 122/46
[2019-10-11 23:12] VITALS: BP 148/85
[2019-10-11] MEDS ORDERED: magnesium 2GM in 50ml NS 50 ML IV PRN (23:20)
[2019-10-11] MEDS ORDERED: magnesium hydroxide 30ml (MOM) UD suspension PO PRN (23:20)
[2019-10-11] MEDS ORDERED: magnesium 4gm in 100ml NS 100 ML IV PRN (23:20)
[2019-10-11] MEDS ORDERED: potassium Cl 20 mEq SR tablet PO PRN ×2 (23:20)
[2019-10-11] MEDS ORDERED: mag hydrox/Alum hydrox/simeth 30ml oral suspension PO PRN (23:20)
[2019-10-11] MEDS ORDERED: magnesium Cl slow-release 64mg tablet PO PRN (23:20)
[2019-10-11] MEDS ORDERED: ondansetron/PF 4mg/2ml inj IV PRN (23:20)
[2019-10-11] MEDS ORDERED: potassium CL 10mEq/100ml bag 100 ML IV PRN (23:20)
--- NOTE | 2019-10-11 23:37 | NUR ---
2 UNITS TRANSFUSED ALL VITAL DOCUMENTED IN TRANFUSION INTERVENTION, DUE TO BEING BACK TO BACK I WANT TO CLARIFY WHAT VITAL TIMES WENT WITH SPECIFIC PRBC UNITS 1ST UNIT VITALS-@2118,2133,2209 COMPLETE. 2ND UNIT VITALS-@2212,2217,2312 COMPLETE.
--- NOTE | 2019-10-11 23:42 | NUR ---
AMMENDED FROM LAST NOTE 2ND UNIT 15 MINUTE VITAL TIME IS 2227
[2019-10-12] VITALS (14 sets, daily range): BP systolic 135–175; BP diastolic 46–90
[2019-10-12] MEDS ORDERED: MESSAGE TO PHARMACY PO ONE (00:05)
[2019-10-12] MEDS ORDERED: insulin Lispro (HumaLOG) vial - multi-dose SQ SCH (00:05)
[2019-10-12] MEDS ORDERED: dextrose ORAL solution 15 GM/59 ML bottle PO PRN ×2 (00:05)
[2019-10-12] MEDS ORDERED: glucagon, human recombinant 1mg kit SUBCUT PRN (00:05)
[2019-10-12] MEDS ORDERED: dextrose 50%-water 50ml dispensing syringe IV PRN ×2 (00:05)
[2019-10-12 00:39] LABS: HEMOGLOBIN 7.1 g/dl (12.0-16.0); MEAN CORPUSCULAR HEMOGLOBIN 26.7 PG (27.0-31.0); MEAN CORPUSCULAR HGB CONC 33.7 g/dL (33.0-36.5); MEAN CORPUSCULAR VOLUME 79.2 FL (78-98); PLATELET COUNT 262 X10'3 (140-440); RED BLOOD COUNT 2.65 X10'6 (4.20-5.60); WHITE BLOOD COUNT 8.6 X10'3 (4.5-11.0)
[2019-10-12 01:48] LABS: HEMOGLOBIN A1C < 3.6 % (4.5-6.2)
[2019-10-12] MEDS: morphine 2 MG/ML inj. syringe IV PRN ×2 (02:08→11:47)
[2019-10-12] MEDS: pantoprazole 40MG/NS 100ML BAG 100 ML IV SCH ×3 (02:14→11:54)
[2019-10-12 06:13] LABS: BASOPHILS # (AUTO) 0.1 X10'3 (0-0.2); BASOPHILS % (AUTO) 1.8 % (0-1); EOSINOPHILS # (AUTO) 0.3 X10'3 (0-0.9); EOSINOPHILS % (AUTO) 3.7 % (0-6); HEMATOCRIT 24.5 % (35.0-45.0); HEMOGLOBIN 8.3 g/dl (12.0-16.0); LYMPHOCYTES # (AUTO) 2.4 X10'3 (1.1-4.8); MEAN CORPUSCULAR HEMOGLOBIN 26.7 PG (27.0-31.0); MEAN CORPUSCULAR HGB CONC 33.9 g/dL (33.0-36.5); MEAN CORPUSCULAR VOLUME 78.9 FL (78-98); MONOCYTES # (AUTO) 1.2 X10'3 (0-0.9); MONOCYTES % (AUTO) 15.2 % (2-12); NEUTROPHILS # (AUTO) 3.7 X10'3 (1.8-7.7); NEUTROPHILS % (AUTO) 48.3 % (42-75); PLATELET COUNT 246 X10'3 (140-440); RED BLOOD COUNT 3.11 X10'6 (4.20-5.60); WHITE BLOOD COUNT 7.7 X10'3 (4.5-11.0)
[2019-10-12 06:33] LABS: ALANINE AMINOTRANSFERASE 9 U/L (12-78); ALBUMIN 2.9 G/DL (3.4-5.0); ALBUMIN/GLOBULIN RATIO 0.9 (1.1-1.5); ALKALINE PHOSPHATASE 105 IU/L (46-116); ANION GAP 7 (8-16); ASPARTATE AMINO TRANSFERASE 11 U/L (10-37); BILIRUBIN,TOTAL 0.8 MG/DL (0.1-1.0); BLOOD UREA NITROGEN 7 MG/DL (7-18); BUN/CREATININE RATIO 8.4 (6.6-38.0); CALCIUM 7.9 MG/DL (8.5-10.1); CHLORIDE 108 MMOL/L (99-107); CREATININE 0.83 MG/DL (0.40-0.90); GLUCOSE 94 MG/DL (70-104); MAGNESIUM 1.5 MG/DL (1.5-2.4); POTASSIUM 3.4 MMOL/L (3.5-5.1); SODIUM 141 MMOL/L (135-145); TOTAL CARBON DIOXIDE 26.4 MMOL/L (24-32); TOTAL PROTEIN 6.1 G/DL (6.4-8.2); eGFR 69 ML/MIN
[2019-10-12] MEDS: K and/or MAG REPLACEMENT MC SCH ×2 (08:00→20:00)
[2019-10-12] MEDS: potassium CL 10mEq/100ml bag 100 ML IV PRN ×4 (08:04→16:32)
[2019-10-12] MEDS: normal saline 1000ml 1,000 ML IV SCH ×2 (09:17→17:36)
[2019-10-12] MEDS ORDERED: CLOP75TA35 PO (09:22)
[2019-10-12] MEDS ORDERED: OMEP-50 PO (09:22)
[2019-10-12 10:14] LABS: TOTAL CELLS COUNTED 100
[2019-10-12 10:15] LABS: PLATELET ESTIMATE NORMAL
[2019-10-12] MEDS: amLODIPine 2.5mg tablet PO SCH (10:15)
[2019-10-12] MEDS ORDERED: proMETHazine 25mg tablet PO PRN (10:15)
[2019-10-12] MEDS ORDERED: nitroGLYCERIN 0.4mg SUBLingual tab SL SCH (10:15)
[2019-10-12 10:16] LABS: ANISOCYTOSIS 3+; LARGE PLATELETS FEW; MICROCYTOSIS 1+
--- NOTE | 2019-10-12 11:23 | NUR ---
Pt A1C results less than 3.6. Glu has been WNL this admit; MILLY d/w RN regarding redo A1C per MD approval given pt hx DM and prior A1C 7.6 in 2015. Addendum: 10/12/19 at [address] Amended: Links added.
[2019-10-12] MEDS ORDERED: DIPH1TAB PO (11:29)
[2019-10-12] MEDS ORDERED: FLUT16SP11 BOTHNARES (11:39)
[2019-10-12 12:39] LABS: BASOPHILS # (AUTO) 0.1 X10'3 (0-0.2); BASOPHILS % (AUTO) 1.5 % (0-1); EOSINOPHILS # (AUTO) 0.3 X10'3 (0-0.9); HEMATOCRIT 28.2 % (35.0-45.0); HEMOGLOBIN 9.1 g/dl (12.0-16.0); LYMPHOCYTES # (AUTO) 1.4 X10'3 (1.1-4.8); LYMPHOCYTES % (AUTO) 15.4 % (21-51); MEAN CORPUSCULAR HEMOGLOBIN 25.7 PG (27.0-31.0); MEAN CORPUSCULAR HGB CONC 32.2 g/dL (33.0-36.5); MEAN PLATELET VOLUME 7.1 FL (7.4-10.4); MONOCYTES # (AUTO) 1.1 X10'3 (0-0.9); MONOCYTES % (AUTO) 11.4 % (2-12); NEUTROPHILS # (AUTO) 6.5 X10'3 (1.8-7.7); NEUTROPHILS % (AUTO) 68.7 % (42-75); PLATELET COUNT 273 X10'3 (140-440); RED BLOOD COUNT 3.52 X10'6 (4.20-5.60); RED CELL DISTRIBUTION WIDTH 21.1 % (11.5-14.5); WHITE BLOOD COUNT 9.4 X10'3 (4.5-11.0)
[2019-10-12] MEDS: gabapentin 300mg capsule PO SCH ×2 (13:00→20:17)
[2019-10-12] MEDS: cyclobenzaprine 10mg tablet PO SCH ×2 (13:00→20:17)
[2019-10-12] MEDS ORDERED: MIDAZolam 5mg/5ml vial ONE (14:00)
[2019-10-12] MEDS ORDERED: LIDOcaine Viscous 15ml cup ONE (14:00)
[2019-10-12] MEDS ORDERED: fentaNYL/PF 50MCG/1 ML 2ML syringe ONE (14:00)
--- NOTE | 2019-10-12 15:49 | NUR ---
patient back from GI lab. VSS. no complaints.
--- NOTE | 2019-10-12 18:30 | NUR ---
Problems reprioritized. Patient report given, questions answered & plan of care reviewed with VIKASH Prakash.
--- NOTE | 2019-10-12 18:30 | NUR ---
Patient in room PCU 3017. I have received report from Karina SUH and had the opportunity to ask questions and assume patient care.
[2019-10-12 18:42] LABS: BASOPHILS # (AUTO) 0.1 X10'3 (0-0.2); EOSINOPHILS # (AUTO) 0.2 X10'3 (0-0.9); EOSINOPHILS % (AUTO) 2.2 % (0-6); HEMATOCRIT 28.5 % (35.0-45.0); HEMOGLOBIN 9.1 g/dl (12.0-16.0); LYMPHOCYTES # (AUTO) 1.7 X10'3 (1.1-4.8); LYMPHOCYTES % (AUTO) 19.2 % (21-51); MEAN CORPUSCULAR HEMOGLOBIN 25.5 PG (27.0-31.0); MEAN CORPUSCULAR VOLUME 79.6 FL (78-98); MEAN PLATELET VOLUME 7.1 FL (7.4-10.4); MONOCYTES % (AUTO) 10.9 % (2-12); NEUTROPHILS % (AUTO) 66.7 % (42-75); PLATELET COUNT 286 X10'3 (140-440); RED BLOOD COUNT 3.58 X10'6 (4.20-5.60); RED CELL DISTRIBUTION WIDTH 21.3 % (11.5-14.5); WHITE BLOOD COUNT 8.9 X10'3 (4.5-11.0)
[2019-10-12] MEDS: sotalol 80mg tablet PO SCH (20:17)
[2019-10-12] MEDS: traZODone 50mg tablet PO SCH (20:17)
[2019-10-12] MEDS: docusate sod 100mg capsule PO SCH (20:17)
[2019-10-12] MEDS: atorvastatin 20mg tablet PO SCH (20:17)
[2019-10-12] MEDS: pantoprazole 40mg Tablet.DR PO SCH (20:18)
[2019-10-12] MEDS: insulin glargine (Lantus) pen - multi-dose SQ SCH (21:00)
[2019-10-13 02:00] VITALS: BP 151/60
[2019-10-13 05:13] LABS: BASOPHILS # (AUTO) 0.1 X10'3 (0-0.2); BASOPHILS % (AUTO) 0.8 % (0-1); EOSINOPHILS # (AUTO) 0.4 X10'3 (0-0.9); EOSINOPHILS % (AUTO) 4.3 % (0-6); HEMATOCRIT 26.8 % (35.0-45.0); HEMOGLOBIN 8.8 g/dl (12.0-16.0); LYMPHOCYTES # (AUTO) 2.2 X10'3 (1.1-4.8); LYMPHOCYTES % (AUTO) 25.3 % (21-51); MEAN CORPUSCULAR HGB CONC 32.7 g/dL (33.0-36.5); MEAN CORPUSCULAR VOLUME 79.6 FL (78-98); MEAN PLATELET VOLUME 7.3 FL (7.4-10.4); MONOCYTES # (AUTO) 1.4 X10'3 (0-0.9); MONOCYTES % (AUTO) 15.7 % (2-12); NEUTROPHILS # (AUTO) 4.7 X10'3 (1.8-7.7); NEUTROPHILS % (AUTO) 53.9 % (42-75); PLATELET COUNT 280 X10'3 (140-440); RED BLOOD COUNT 3.37 X10'6 (4.20-5.60); RED CELL DISTRIBUTION WIDTH 21.7 % (11.5-14.5); WHITE BLOOD COUNT 8.6 X10'3 (4.5-11.0)
[2019-10-13 05:30] LABS: ALANINE AMINOTRANSFERASE 9 U/L (12-78); ALBUMIN 2.9 G/DL (3.4-5.0); ALBUMIN/GLOBULIN RATIO 0.9 (1.1-1.5); ALKALINE PHOSPHATASE 111 IU/L (46-116); ANION GAP 6 (8-16); ASPARTATE AMINO TRANSFERASE 14 U/L (10-37); BILIRUBIN,TOTAL 0.4 MG/DL (0.1-1.0); BLOOD UREA NITROGEN 6 MG/DL (7-18); BUN/CREATININE RATIO 8.5 (6.6-38.0); CALCIUM 8.4 MG/DL (8.5-10.1); CHLORIDE 108 MMOL/L (99-107); CREATININE 0.71 MG/DL (0.40-0.90); GLUCOSE 106 MG/DL (70-104); MAGNESIUM 1.6 MG/DL (1.5-2.4); POTASSIUM 3.7 MMOL/L (3.5-5.1); SODIUM 142 MMOL/L (135-145); TOTAL CARBON DIOXIDE 28.2 MMOL/L (24-32); TOTAL PROTEIN 6.3 G/DL (6.4-8.2); eGFR 82 ML/MIN
[2019-10-13] MEDS: acetaminophen 325mg tablet PO PRN ×2 (06:24→20:27)
--- NOTE | 2019-10-13 06:29 | NUR ---
Problems reprioritized. Patient report given, questions answered & plan of care reviewed with Catie SUH.
[2019-10-13 07:00] VITALS: BP 156/53
[2019-10-13 07:36] LABS: ANISOCYTOSIS 3+; MICROCYTOSIS 1+; PLATELET ESTIMATE NORMAL; TOTAL CELLS COUNTED 100
[2019-10-13 07:37] LABS: HYPOCHROMASIA 1+; LARGE PLATELETS FEW
[2019-10-13 07:38] LABS: POLYCHROMASIA 1+
[2019-10-13] MEDS: K and/or MAG REPLACEMENT MC SCH ×2 (08:00→20:00)
[2019-10-13] MEDS: normal saline 1000ml 1,000 ML IV SCH (09:17)
[2019-10-13] MEDS: cyclobenzaprine 10mg tablet PO SCH ×3 (09:18→20:28)
[2019-10-13] MEDS: gabapentin 300mg capsule PO SCH ×3 (09:18→20:29)
[2019-10-13] MEDS: docusate sod 100mg capsule PO SCH ×2 (09:18→20:28)
[2019-10-13] MEDS: amLODIPine 2.5mg tablet PO SCH (09:18)
[2019-10-13] MEDS: losartan 50mg tablet PO SCH (09:19)
[2019-10-13] MEDS: pantoprazole 40mg Tablet.DR PO SCH ×2 (09:19→20:28)
[2019-10-13] MEDS: sotalol 80mg tablet PO SCH ×2 (09:24→20:26)
[2019-10-13 11:00] VITALS: BP 144/48
[2019-10-13 15:00] VITALS: BP 137/53
--- NOTE | 2019-10-13 15:45 | NUR ---
New orders from Juma to discontinue NS @ 100. Juma informed that the plan is to discharge pt tomorrow morning
--- NOTE | 2019-10-13 16:30 | NUR ---
Patient in room PCU 3017. I have received report from VIKASH Loyd and had the opportunity to ask questions and assume patient care.
[2019-10-13 18:30] VITALS: BP 126/69
--- NOTE | 2019-10-13 18:30 | NUR ---
Patient in room PCU 3017. I have received report from Catie SUH and had the opportunity to ask questions and assume patient care.
--- NOTE | 2019-10-13 19:14 | NUR ---
Problems reprioritized. Patient report given, questions answered & plan of care reviewed with VIKASH Loyd.
[2019-10-13] MEDS: atorvastatin 20mg tablet PO SCH (20:27)
[2019-10-13] MEDS: traZODone 50mg tablet PO SCH (20:28)
[2019-10-13] MEDS: insulin glargine (Lantus) pen - multi-dose SQ SCH (20:34)
[2019-10-13 22:00] VITALS: BP 139/50
[2019-10-14 02:30] VITALS: BP 152/61
--- NOTE | 2019-10-14 06:07 | NUR ---
Patient in room [place] [address]. I have received report from VIKASH Munguia and had the opportunity to ask questions and assume patient care. Addendum: 10/14/19 at 0608 by Catie Jules RN Patient in room [place] [address]. I have received report from VIKASH Loyd and had the opportunity to ask questions and assume patient care.
--- NOTE | 2019-10-14 06:19 | NUR ---
Problems reprioritized. Patient report given, questions answered & plan of care reviewed with Catie SUH.
[2019-10-14 06:45] LABS: ALANINE AMINOTRANSFERASE 11 U/L (12-78); ALBUMIN/GLOBULIN RATIO 0.9 (1.1-1.5); ALKALINE PHOSPHATASE 112 IU/L (46-116); ANION GAP 7 (8-16); ASPARTATE AMINO TRANSFERASE 12 U/L (10-37); BILIRUBIN,TOTAL 0.2 MG/DL (0.1-1.0); BLOOD UREA NITROGEN 9 MG/DL (7-18); BUN/CREATININE RATIO 11.1 (6.6-38.0); CALCIUM 8.7 MG/DL (8.5-10.1); CHLORIDE 106 MMOL/L (99-107); CREATININE 0.81 MG/DL (0.40-0.90); GLUCOSE 126 MG/DL (70-104); MAGNESIUM 1.6 MG/DL (1.5-2.4); POTASSIUM 3.7 MMOL/L (3.5-5.1); SODIUM 143 MMOL/L (135-145); TOTAL CARBON DIOXIDE 29.9 MMOL/L (24-32); TOTAL PROTEIN 6.5 G/DL (6.4-8.2); eGFR 71 ML/MIN
[2019-10-14 07:00] VITALS: BP 102/52
[2019-10-14 07:00] LABS: BASOPHILS # (AUTO) 0.1 X10'3 (0-0.2); BASOPHILS % (AUTO) 0.6 % (0-1); EOSINOPHILS # (AUTO) 0.4 X10'3 (0-0.9); EOSINOPHILS % (AUTO) 3.7 % (0-6); HEMATOCRIT 26.4 % (35.0-45.0); LYMPHOCYTES # (AUTO) 1.9 X10'3 (1.1-4.8); MEAN CORPUSCULAR VOLUME 79.3 FL (78-98); MEAN PLATELET VOLUME 7.4 FL (7.4-10.4); MONOCYTES % (AUTO) 9.9 % (2-12); NEUTROPHILS # (AUTO) 6.6 X10'3 (1.8-7.7); NEUTROPHILS % (AUTO) 66.8 % (42-75); PLATELET COUNT 285 X10'3 (140-440); RED BLOOD COUNT 3.33 X10'6 (4.20-5.60); RED CELL DISTRIBUTION WIDTH 22.6 % (11.5-14.5); WHITE BLOOD COUNT 9.9 X10'3 (4.5-11.0)
[2019-10-14] MEDS: K and/or MAG REPLACEMENT MC SCH (08:00)
[2019-10-14] MEDS: sotalol 80mg tablet PO SCH (08:51)
[2019-10-14] MEDS: docusate sod 100mg capsule PO SCH (08:51)
[2019-10-14] MEDS: cyclobenzaprine 10mg tablet PO SCH (08:52)
[2019-10-14] MEDS: amLODIPine 2.5mg tablet PO SCH (08:52)
[2019-10-14] MEDS: pantoprazole 40mg Tablet.DR PO SCH (08:52)
[2019-10-14] MEDS: losartan 50mg tablet PO SCH (08:52)
[2019-10-14] MEDS: gabapentin 300mg capsule PO SCH (08:52)
[2019-10-14] MEDS: morphine 2 MG/ML inj. syringe IV PRN (09:30)
[2019-10-14] MEDS ORDERED: PANT40TA4 PO (10:44)
--- NOTE | 2019-10-14 12:50 | NUR ---
Pt stable for transfer per MD orders. Provided discharge education and instructions regarding medications and appointments. Answered any questions pt may have regarding discharge. Tele monitor removed. PIV removed with nasal cannula intact. All belongings sent with pt. Pt wheeled to lobby with associate of science in nursing. Picked pt up via home vehicle by friend. Addendum: 10/14/19 at 1314 by Catie Jules RN Pt was prescribed medication after discharge. Spoke to pt and stated that Juma will put in an order of Zofran r/t nausea and emesis and to filler picker med at designated pharmacy.
--- NOTE | 2019-10-14 13:48 | NUR ---
PAGER ID: [phone] MESSAGE: Re: Therese Chaudhary, room: 301. Clarification: What dosage and frequency of Zofran would you like called into Pt's pharmacy? -Raghavendra [facility] #[id number] Dr. Dennison paged concerning Pt's DC meds
--- NOTE | 2019-10-17 13:39 | NUR ---
Case Management DC follow up: spoke to pt via telephone: Reports: "doing pretty darn good". Denies acute/continuous CP, SOB, resp distress, emergent general pain, NV, dizziness, CASTRO, blurry vision, dizziness, syncope episodes, diaphoresis, fever. pt does have bloating, passing gas. states has not had a BM since 10/10/2019. denies abd pain upon palpation. admived pt to call PCP, and / or Dr Liz to confirm ok for OTC meds: Miralax, prune juice, suppository, enema. colace not working. pt agrees to contact after hanging up. Verbalizes understanding of Rx medications/continued/new, why prescribed. Taking as ordered, no ase noted r/t polypharmacy. Went over medication orders, pt misread instructions to hold Eliquis 5mg BID until 10/20/2019 and has taken. Agreed to stop, let PCP know. Denies bleeding at this time. Verbalizes understanding of s/s that warrant 9-11/ER visit for evaluation. Acknowledges importance of scheduling/keeping follow-up w/PCP, specialist. Needs met, questions answered at DC. No further questions at this time.
== END 2019-10-14 12:50 | disposition home or self-care (01) | DRG 378 ==
LOC: ER 19:50 → ED HOLD 23:30 → PCU 3S 10-12 00:42
PROVIDERS: ADMIT Internal Medicine; ATTEND Family Medicine
PROC: 30233N1 Transfusion of Nonautologous Red Blood Cells into Peripheral Vein, Percutaneous Approach (ICD-10-PCS; 2019-10-11)
PROC: 0W3P8ZZ Control Bleeding in Gastrointestinal Tract, Via Natural or Artificial Opening Endoscopic (ICD-10-PCS; principal; 2019-10-12)
DX: K31.811 Angiodysplasia of stomach and duodenum with bleeding (principal); D68.59 Other primary thrombophilia; D50.0 Iron deficiency anemia secondary to blood loss (chronic); E11.51 Type 2 diabetes mellitus with diabetic peripheral angiopathy without gangrene; E78.00 Pure hypercholesterolemia, unspecified; E78.5 Hyperlipidemia, unspecified; F12.90 Cannabis use, unspecified, uncomplicated; F32.9 Major depressive disorder, single episode, unspecified; G43.909 Migraine, unspecified, not intractable, without status migrainosus; G89.29 Other chronic pain; K21.9 Gastro-esophageal reflux disease without esophagitis; M54.9 Dorsalgia, unspecified; F17.210 Nicotine dependence, cigarettes, uncomplicated; I10 Essential (primary) hypertension; I25.10 Atherosclerotic heart disease of native coronary artery without angina pectoris; I48.91 Unspecified atrial fibrillation; J44.9 Chronic obstructive pulmonary disease, unspecified; Z79.02 Long term (current) use of antithrombotics/antiplatelets; Z87.19 Personal history of other diseases of the digestive system; Z90.710 Acquired absence of both cervix and uterus; Z88.2 Allergy status to sulfonamides; Z88.5 Allergy status to narcotic agent; Z79.899 Other long term (current) drug therapy; Z79.82 Long term (current) use of aspirin; Z88.8 Allergy status to other drugs, medicaments and biological substances; Z90.49 Acquired absence of other specified parts of digestive tract
CPT/HCPCS: 36415; 36430; 43227; 80053; 82948; 83036; 83735; 85025; 85027; 85610; 86885; 86900; 86901; 86920; 87081; 93005; 96374; 96375; 99152; 99291; A4620; C9113; G0378; J1815; J2250; J2270; J2405; J3010; J3480; J7030; J7040; P9016

== ENCOUNTER → 2023-01-08 | Outpatient (CLI) | payer MEDICARE, MEDICAID ==
[~2023-01-08] MED LIST changes: -ACYC-202 PO; -APIX5TAB3 PO; -ASPI-1265 PO; -DIPH1TAB PO; -ESTR10TA VG; +FLUT16SP11 BOTHNARES; -FLUT1DIS INH; -LANS15CA18 PO; -LOSA100T57 PO; +LOSA100T58 PO; -LOSA50TA3 PO; +PANT40TA54 PO; -PER10325T PO; -PHEN-824 PO; -PHEN-888 PO; -ROPI0.2534 PO; +iohexol 350MG/ML 100ml bottle IV ONE
[2023-01-08 09:54] LABS: BASOPHILS # (AUTO) 0.1 X10'3 (0-0.2); BASOPHILS % (AUTO) 0.9 % (0-1); EOSINOPHILS # (AUTO) 0.4 X10'3 (0-0.9); EOSINOPHILS % (AUTO) 3.2 % (0-6); HEMATOCRIT 40.8 % (35.0-45.0); HEMOGLOBIN 13.1 g/dl (12.0-16.0); LYMPHOCYTES # (AUTO) 2.4 X10'3 (1.1-4.8); LYMPHOCYTES % (AUTO) 20.2 % (21-51); MEAN CORPUSCULAR HEMOGLOBIN 29.3 PG (27.0-31.0); MEAN CORPUSCULAR HGB CONC 32.2 g/dL (33.0-36.5); MEAN PLATELET VOLUME 7.7 FL (7.4-10.4); MONOCYTES # (AUTO) 1.2 X10'3 (0-0.9); MONOCYTES % (AUTO) 9.9 % (2-12); NEUTROPHILS # (AUTO) 7.7 X10'3 (1.8-7.7); NEUTROPHILS % (AUTO) 65.8 % (42-75); PLATELET COUNT 355 X10'3 (140-440); RED BLOOD COUNT 4.48 X10'6 (4.20-5.60); WHITE BLOOD COUNT 11.7 X10'3 (4.5-11.0)
[2023-01-08 10:08] LABS: APTT 32 SECONDS (22-32)
[2023-01-08 10:11] LABS: ALANINE AMINOTRANSFERASE 14 U/L (12-78); ALBUMIN 3.4 G/DL (3.4-5.0); ALKALINE PHOSPHATASE 127 IU/L (46-116); ANION GAP 7 (8-16); ASPARTATE AMINO TRANSFERASE 15 U/L (10-37); BILIRUBIN,TOTAL 0.4 MG/DL (0.1-1.0); BLOOD UREA NITROGEN 10 MG/DL (7-18); BUN/CREATININE RATIO 10.8 (10.0-20.0); CALCIUM 8.9 MG/DL (8.5-10.1); CHLORIDE 105 MMOL/L (99-107); CREATININE 0.93 MG/DL (0.40-0.90); GLUCOSE 131 MG/DL (70-104); POTASSIUM 4.2 MMOL/L (3.5-5.1); SODIUM 140 MMOL/L (135-145); TOTAL PROTEIN 6.8 G/DL (6.4-8.2); eGFR 60 ML/MIN
== END | disposition home or self-care (01) ==
LOC: 64 CT 09:24
PROVIDERS: ATTEND Student in an Organized Health Care Education/Training Program
DX: J43.2 Centrilobular emphysema (principal); K76.0 Fatty (change of) liver, not elsewhere classified; I48.91 Unspecified atrial fibrillation; I48.92 Unspecified atrial flutter; I70.0 Atherosclerosis of aorta
CPT/HCPCS: 36415; 75574; 80053; 85025; 85610; 85730; J3490; Q9967

== ENCOUNTER 2023-01-27 11:25 | Outpatient (CLI) | payer MEDICARE, MEDICAID ==
[~2023-01-27] VITALS: Ht 168.9 cm; Wt 72.6 kg
[~2023-01-27 11:25] MED LIST changes: -iohexol 350MG/ML 100ml bottle IV ONE
[2023-01-27 12:51] LABS: BASOPHILS # (AUTO) 0.1 X10'3 (0-0.2); BASOPHILS % (AUTO) 0.7 % (0-1); EOSINOPHILS # (AUTO) 0.2 X10'3 (0-0.9); EOSINOPHILS % (AUTO) 2.7 % (0-6); LYMPHOCYTES # (AUTO) 2.7 X10'3 (1.1-4.8); LYMPHOCYTES % (AUTO) 30.9 % (21-51); MEAN CORPUSCULAR HEMOGLOBIN 29.6 PG (27.0-31.0); MEAN CORPUSCULAR HGB CONC 33.1 g/dL (33.0-36.5); MEAN CORPUSCULAR VOLUME 89.3 FL (78-98); MEAN PLATELET VOLUME 7.6 FL (7.4-10.4); MONOCYTES # (AUTO) 1.3 X10'3 (0-0.9); MONOCYTES % (AUTO) 14.4 % (2-12); NEUTROPHILS # (AUTO) 4.5 X10'3 (1.8-7.7); NEUTROPHILS % (AUTO) 51.3 % (42-75); PRE OP HEMATOCRIT 37.3 % (35.0-45.0); PRE OP HEMOGLOBIN 12.3 g/dL (12.0-16.0); PRE OP PLATELET COUNT 377 X10'3 (140-440); RED BLOOD COUNT 4.17 X10'6 (4.20-5.60); RED CELL DISTRIBUTION WIDTH 16.4 % (11.5-14.5)
[2023-01-27 13:05] LABS: PRE OP PROTIME 10.9 SECONDS (9.0-12.0)
[2023-01-27 13:07] LABS: ALBUMIN 3.5 G/DL (3.4-5.0); ALKALINE PHOSPHATASE 121 IU/L (46-116); BLOOD UREA NITROGEN 12 MG/DL (7-18); CALCIUM 9.1 MG/DL (8.5-10.1); CHLORIDE 100 MMOL/L (99-107); PRE OP ALT 16 U/L (30-65); PRE OP ANION GAP 9 (8-16); PRE OP AST 19 U/L (10-37); PRE OP BILIRUB, TOTAL 0.4 MG/DL (0.0-1.0); PRE OP GLUCOSE 134 MG/DL (70-104); PRE OP POTASSIUM 4.1 MMOL/L (3.4-5.1); PRE OP SODIUM 135 MMOL/L (135-145); TOTAL CARBON DIOXIDE 26.2 MMOL/L (24-32); TOTAL PROTEIN 7.1 G/DL (6.4-8.2); eGFR 55 ML/MIN
[2023-01-27] MEDS ORDERED: [UNRECOGNIZED DRUG - CODE] PO (13:38)
[2023-01-27] MEDS ORDERED: PANT-47 PO (13:38)
[2023-01-27] MEDS ORDERED: ROPI0.5T37 PO (13:38)
[2023-01-27] MEDS ORDERED: DIPH-186 PO (13:38)
[2023-01-27] MEDS ORDERED: NITROGLYCERIN TD (13:38)
[2023-01-27] MEDS ORDERED: POTA8TAB69 PO (13:42)
[2023-01-27] MEDS ORDERED: POLY17PO10 PO (13:42)
[2023-01-27] MEDS ORDERED: TRIA15CR61 TOP (13:42)
[2023-01-27] MEDS ORDERED: TRAZ-256 PO (13:42)
[2023-01-27] MEDS ORDERED: SOTA80TA46 PO (13:42)
[2023-01-27 13:46] LABS: CLARITY,URINE CLEAR (Clear); COLOR,URINE YELLOW (Yellow); GLUCOSE, URINE NEGATIVE (Neg); KETONES,URINE NEGATIVE (Neg); LEUKOCYTE ESTERASE ,URINE TRACE (Neg); NITRITES, URINE POSITIVE (Neg); OCCULT BLOOD,URINE NEGATIVE (Neg); PROTEIN,URINE NEGATIVE (Neg); UROBILINOGEN,URINE 0.2 E.U/dL (0.2-1.0)
[2023-01-27 13:49] LABS: UA COLLECTION TYPE CLN CATCH MIDSTREAM
[2023-01-27 14:06] LABS: BACTERIA,URINE 3+ /HPF (Neg); MUCUS STRANDS NONE SEEN /LPF (Neg); RBC,URINE NONE SEEN /HPF (0-2); SQUAMOUS EPITHELIAL CELL,UR FEW /LPF (FEW)
[2023-01-28] MEDS ORDERED: KEN0.1O TP (20:21)
[2023-01-29] MEDS ORDERED: ringers solution, lacted 1,000 ML IV SCH (05:00)
[2023-01-29] MEDS ORDERED: DOCUMENT DATE & TIME OF BETA-BLOCKER PO ONE (05:30)
[2023-01-29] MEDS ORDERED: ondansetron/PF 4mg/2ml inj IV PRN (05:30)
[2023-01-29] MEDS ORDERED: vancomycin 1,500 MG in NS 300ml IV soln IV ONE (05:30)
[2023-01-29] MEDS ORDERED: cefazolin 2gm/D5W 100mL 100 ML IV ONE (05:30)
[2023-01-29] MEDS ORDERED: albuterol 2.5 MG/3 ML nebule NEB ONE (05:30)
[2023-01-29] MEDS ORDERED: famotidine 20mg tablet PO ONE (05:30)
[2023-01-29] MEDS ORDERED: protamine sulfate 10mg/ml inj. ONE (08:21)
== END 2023-01-27 23:59 | disposition home or self-care (01) ==
LOC: LAB 11:25 → EDSTATUS 01-29 09:15
PROVIDERS: ATTEND Student in an Organized Health Care Education/Training Program
DX: I49.3 Ventricular premature depolarization (principal); I48.91 Unspecified atrial fibrillation; I70.0 Atherosclerosis of aorta
CPT/HCPCS: 36415; 71046; 80053; 81001; 85025; 85610; 85730; 86885; 86900; 86901; 86920; 87077; 87081; 87088; 87186; 93005; J0690; J2720; J3370; J7120

== ENCOUNTER 2023-03-19 09:19 | Inpatient (IN) | payer MEDICARE, MEDICAID ==
[2023-03-10 15:44] LABS: BILIRUBIN,URINE NEGATIVE (Neg); CLARITY,URINE CLEAR (Clear); COLOR,URINE YELLOW (Yellow); GLUCOSE, URINE NEGATIVE (Neg); KETONES,URINE NEGATIVE (Neg); LEUKOCYTE ESTERASE ,URINE NEGATIVE (Neg); NITRITES, URINE POSITIVE (Neg); OCCULT BLOOD,URINE TRACE-INTACT (Neg); PH,URINE 5.5 (4.8-8.0); PROTEIN,URINE NEGATIVE (Neg)
[2023-03-10 15:48] LABS: BASOPHILS # (AUTO) 0.1 X10'3 (0-0.2); BASOPHILS % (AUTO) 0.5 % (0-1); EOSINOPHILS # (AUTO) 0.1 X10'3 (0-0.9); EOSINOPHILS % (AUTO) 1.5 % (0-6); LYMPHOCYTES # (AUTO) 2.3 X10'3 (1.1-4.8); LYMPHOCYTES % (AUTO) 23.3 % (21-51); MEAN CORPUSCULAR HEMOGLOBIN 29.6 PG (27.0-31.0); MEAN CORPUSCULAR VOLUME 89.8 FL (78-98); MEAN PLATELET VOLUME 7.6 FL (7.4-10.4); MONOCYTES # (AUTO) 0.7 X10'3 (0-0.9); MONOCYTES % (AUTO) 7.2 % (2-12); NEUTROPHILS # (AUTO) 6.5 X10'3 (1.8-7.7); NEUTROPHILS % (AUTO) 67.5 % (42-75); PRE OP HEMATOCRIT 40.5 % (35.0-45.0); PRE OP HEMOGLOBIN 13.4 g/dL (12.0-16.0); PRE OP PLATELET COUNT 360 X10'3 (140-440); PRE OP WHITE BLOOD COUNT 9.7 10'3 (4.8-10.8); RED BLOOD COUNT 4.51 X10'6 (4.20-5.60); RED CELL DISTRIBUTION WIDTH 16.8 % (11.5-14.5)
[2023-03-10 15:57] LABS: PRE OP PROTIME 10.8 SECONDS (9.0-12.0)
[2023-03-10 15:58] LABS: ALBUMIN 3.5 G/DL (3.4-5.0); ALBUMIN/GLOBULIN RATIO 0.9 (1.1-1.5); ALKALINE PHOSPHATASE 133 IU/L (46-116); BLOOD UREA NITROGEN 8 MG/DL (7-18); BUN/CREATININE RATIO 8.7 (10.0-20.0); CALCIUM 9.1 MG/DL (8.5-10.1); CHLORIDE 103 MMOL/L (99-107); CREATININE 0.92 MG/DL (0.40-0.90); PRE OP ALT 18 U/L (30-65); PRE OP ANION GAP 6 (8-16); PRE OP AST 13 U/L (10-37); PRE OP BILIRUB, TOTAL 0.3 MG/DL (0.0-1.0); PRE OP GLUCOSE 135 MG/DL (70-104); PRE OP POTASSIUM 3.9 MMOL/L (3.4-5.1); PRE OP SODIUM 137 MMOL/L (135-145); TOTAL CARBON DIOXIDE 28.5 MMOL/L (24-32); TOTAL PROTEIN 7.2 G/DL (6.4-8.2); eGFR 60 ML/MIN
[2023-03-10 16:05] LABS: SQUAMOUS EPITHELIAL CELL,UR FEW /LPF (FEW); UA COLLECTION TYPE CLN CATCH MIDSTREAM
[2023-03-10 16:06] LABS: BACTERIA,URINE 1+ /HPF (Neg); RBC,URINE 0-2 /HPF (0-2); TRANSITIONAL EPI CELLS,URINE FEW /HPF; WBC,URINE 0-4 /HPF (0-4)
[2023-03-19] VITALS (26 sets, daily range): BP systolic 126–170; BP diastolic 49–87; PULSE 61–95; RESP 10–18; TEMP 97.7–97.9; O2SAT 90–100
[~2023-03-19] VITALS: Ht 167.6 cm; Wt 71.8 kg
[~2023-03-19 09:19] MED LIST changes: -AMLO2.5T2 PO; +AMLO5TAB PO; +APIX5TAB3 PO; +ATOR-2 PO; -ATOR40TA PO; +DIPH-186 PO; +DOCUMENT DATE & TIME OF BETA-BLOCKER PO ONE; +KEN0.1O TP; -NITR0.4T51 SL; +NITR1PAT68 TD; +PANT20TA18 PO; -PANT40TA54 PO; +POLY17PO10 PO; -PROM25TA14 PO; +ROPI0.5T37 PO; +[UNRECOGNIZED DRUG - CODE] PO; +albuterol 2.5 MG/3 ML nebule NEB ONE; +cefazolin 2gm/D5W 100mL 100 ML IV ONE; +famotidine 20mg tablet PO ONE; +ondansetron/PF 4mg/2ml inj IV PRN; +ringers solution, lacted 1,000 ML IV SCH; +vancomycin 1,500 MG in NS 300ml IV soln IV ONE
[2023-03-19] MEDS ORDERED: SOTA80TA73 PO (12:34)
[2023-03-19] MEDS ORDERED: LIDOcaine 1% (10mg/ml) 2ml vial ONE (17:45)
[2023-03-19] MEDS ORDERED: iohexol 350MG/ML 100ml bottle IV ONE (18:12)
[2023-03-19] MEDS ORDERED: meperidine/PF 25mg/ml syringe IV PRN ×3 (18:20)
[2023-03-19] MEDS ORDERED: labetalol 20mg/4ml (5mg/ml) syringe IV PRN ×2 (18:20→19:50)
[2023-03-19] MEDS ORDERED: HYDROmorphone/PF 0.2 MG/ML SYRINGE IV PRN ×2 (18:20)
[2023-03-19] MEDS ORDERED: hydrALAZINE 20mg/ml inj. IV PRN ×2 (18:20→19:50)
[2023-03-19] MEDS ORDERED: ipratropium/albuterol 3ml nebule IH ONE (18:20)
[2023-03-19] MEDS ORDERED: acetaminophen 1,000mg/100ml IV 100 ML IV PRN (18:20)
[2023-03-19] MEDS ORDERED: ringers solution, lacted 1,000 ML IV SCH (18:20)
[2023-03-19] MEDS ORDERED: proCHLORperazine 10 MG/2 ml inj IV PRN ×2 (18:20→19:50)
[2023-03-19] MEDS ORDERED: ondansetron/PF 4mg/2ml inj IV PRN ×2 (18:20→19:50)
[2023-03-19] MEDS ORDERED: sevoflurane 250ml liquid IH ONE (18:28)
[2023-03-19] MEDS ORDERED: midazolam 1 mg/ML 2ml injection ONE (18:30)
[2023-03-19] MEDS ORDERED: triamcinolone acet 0.1% cream 15gm TP PRN (18:50)
[2023-03-19] MEDS ORDERED: polyethylene glycol 3350 17gm powd pack PO PRN (18:50)
[2023-03-19] MEDS ORDERED: acetaminophen 325mg tablet PO PRN ×2 (18:50→19:50)
[2023-03-19] MEDS ORDERED: diphenoxylate/atropine tablet (Lomotil) PO PRN (18:50)
[2023-03-19] MEDS ORDERED: docusate sod 100mg capsule PO PRN ×2 (18:50→19:50)
[2023-03-19] MEDS ORDERED: nitroGLYCERIN 0.4mg/hour patch TD PRN (18:50)
[2023-03-19] MEDS ORDERED: chlorpheniramine 4mg tablet PO PRN (18:50)
[2023-03-19] MEDS ORDERED: fentaNYL /PF 50mcg/ml 5ml ampule ONE (18:56)
[2023-03-19] MEDS ORDERED: dexamethasone sod phosphate 4mg/ml inj. ONE (18:57)
[2023-03-19] MEDS ORDERED: LIDOcaine 1%/PF 5ML 10 MG/ML VIAL ONE (18:57)
[2023-03-19] MEDS ORDERED: ondansetron/PF 4mg/2ml inj ONE (18:57)
[2023-03-19] MEDS ORDERED: propofol inj 20 ML IV ONE (18:57)
[2023-03-19] MEDS ORDERED: heparin 1,000unit/ml 10ml vial 10 ML ONE (18:57)
[2023-03-19] MEDS ORDERED: albuterol 2.5 MG/3 ML nebule NEB PRN (19:05)
[2023-03-19] MEDS ORDERED: heparin 1,000 UNITS/NS 500ml 500 ML ONE (19:26)
[2023-03-19] MEDS ORDERED: magnesium 4gm in 100ml NS 100 ML IV PRN (19:50)
[2023-03-19] MEDS ORDERED: diphenhydrAMINE 25mg capsule PO PRN (19:50)
[2023-03-19] MEDS ORDERED: potassium Cl 20 mEq SR tablet PO PRN (19:50)
[2023-03-19] MEDS ORDERED: potassium Cl 40MEQ/1/2NS 520ml 520 ML IV PRN (19:50)
[2023-03-19] MEDS ORDERED: potassium Cl 20mEq/100mL bag 100 ML IV PRN (19:50)
[2023-03-19] MEDS ORDERED: ALPRAZolam 0.25mg tablet PO PRN (19:50)
[2023-03-19] MEDS ORDERED: magnesium 2GM in 50ml NS 50 ML IV PRN (19:50)
[2023-03-19] MEDS ORDERED: pantoprazole 40mg Tablet.DR PO PRN (19:50)
[2023-03-19] MEDS ORDERED: potassium Cl 40MEQ/270ML bag 250 ML IV PRN (19:50)
[2023-03-19] MEDS ORDERED: potassium CL 10mEq/100ml bag 100 ML IV PRN (19:50)
[2023-03-19] MEDS: normal saline 1000ml 1,000 ML IV SCH (19:50)
[2023-03-19] MEDS ORDERED: sotalol 80mg tablet PO SCH (20:00)
[2023-03-19] MEDS ORDERED: non-formulary drug (Pantoprazole Sodium (Protonix) 1 TAB) PO SCH (20:00)
--- NOTE | 2023-03-19 20:04 | NUR ---
Received from OR via BED, accompanied by Anesthesiologist DR CRANE and report given by Anesthesiologist AND LABORER ELECTROPLATING. PT DROWSY, NAUSEATED. 4 MG ZOFRAN GIVEN. RIGHT GROIN W/STOPCOCK CLOSURE DEVICE INTACT, NO SWELLING, OOZING OR HEMATOMA. BILAT TIBIAL/PEDAL PULSES ALL DOPPLER QUALITY. NEURO CHECKS INTACT, SMILE SYMMETRICAL, TONGUE MIDLINE, STRENGTH IN DOOR SLINGER EQUAL, PUSH PULL EQUAL, PUSH AND LIFT W/LE'S EQUAL. Addendum: 03/19/23 at 2035 by Frida Maloney RN Amended: Links added.
[2023-03-19] MEDS ORDERED: atorvastatin 20mg tablet PO SCH (21:00)
[2023-03-19] MEDS ORDERED: ROPINIRole 0.25mg tablet PO SCH (21:00)
[2023-03-19] MEDS ORDERED: traZODone 50mg tablet PO SCH (21:00)
[2023-03-19] MEDS ORDERED: cyclobenzaprine 10mg tablet PO SCH (21:00)
[2023-03-19] MEDS ORDERED: fluticasone nasal spray 16GM bottle NS SCH (21:00)
--- NOTE | 2023-03-19 22:44 | NUR ---
Report called to receiving nurse. PT VOIDED AND HAD BM PRIOR TO TRANSFER, KATELIN CARE PROVIDED. Transferred via BED W/ 2 BAGS OF Belongings, DENTURES TO ROOM 3018A. RECEIVING RN AT BEDSIDE TO RECEIVE PT, ASSESSED RIGHT GROIN W/RECEIVING RN NO CHANGES NOTED, SITE REMAINS SOFT W/NO OOZING, SWELLING OR HEMATOMA, DRSG CDI. BLL, CALL LIGHT GIVEN, SIDE RAILS UP X 2. Special Issues communicated to receiving nurse. YES. Addendum: 03/19/23 at 2302 by Frida Maloney RN Amended: Links added.
--- NOTE | 2023-03-19 23:40 | NUR ---
7 beat run of [facility], notified MD Hamilton BROWER, no new orders at present. Pt resumed back into sinus rhythm no s/s of distress from patient VSS, no c/o pain. Will continue with current plan of care.
[2023-03-19] MEDS: gabapentin 300mg capsule PO SCH (23:50)
[2023-03-19] MEDS: sotalol HCl 40mg (1/2 tablet) PO SCH (23:53)
[2023-03-20] VITALS (11 sets, daily range): BP systolic 100–128; BP diastolic 42–57; PULSE 61–82; RESP 10–16; TEMP 97.6–97.9; O2SAT 94–97
[2023-03-20] MEDS: normal saline 1000ml 1,000 ML IV SCH (05:50)
--- NOTE | 2023-03-20 06:10 | NUR ---
Patient in room PCU 3018. I have received report from Medhat SUH and had the opportunity to ask questions and assume patient care.Pt yamilies frank, [facility] [place] DRSG CDI. Call light in reach. Addendum: 03/20/23 at 0648 by Zeny Hernandez RN Amended: Links added.
[2023-03-20 06:23] LABS: BASOPHILS % (AUTO) 0.5 % (0-1); EOSINOPHILS % (AUTO) 0 % (0-6); HEMATOCRIT 35.1 % (35.0-45.0); HEMOGLOBIN 11.6 g/dl (12.0-16.0); LYMPHOCYTES # (AUTO) 0.6 X10'3 (1.1-4.8); MEAN CORPUSCULAR HEMOGLOBIN 29.5 PG (27.0-31.0); MEAN CORPUSCULAR HGB CONC 33.1 g/dL (33.0-36.5); MEAN CORPUSCULAR VOLUME 89.2 FL (78-98); MEAN PLATELET VOLUME 7.5 FL (7.4-10.4); MONOCYTES # (AUTO) 0.1 X10'3 (0-0.9); MONOCYTES % (AUTO) 1.6 % (2-12); NEUTROPHILS # (AUTO) 6.1 X10'3 (1.8-7.7); NEUTROPHILS % (AUTO) 88.9 % (42-75); PLATELET COUNT 284 X10'3 (140-440); RED BLOOD COUNT 3.93 X10'6 (4.20-5.60); RED CELL DISTRIBUTION WIDTH 16.2 % (11.5-14.5); WHITE BLOOD COUNT 6.9 X10'3 (4.5-11.0)
[2023-03-20 06:25] LABS: PROTHROMBIN TIME 10.7 SECONDS (9.0-12.0)
[2023-03-20 06:49] LABS: ALANINE AMINOTRANSFERASE 16 U/L (12-78); ALBUMIN 2.9 G/DL (3.4-5.0); ALBUMIN/GLOBULIN RATIO 0.9 (1.1-1.5); ALKALINE PHOSPHATASE 104 IU/L (46-116); ANION GAP 4 (8-16); ASPARTATE AMINO TRANSFERASE 18 U/L (10-37); BILIRUBIN,TOTAL 0.4 MG/DL (0.1-1.0); BLOOD UREA NITROGEN 13 MG/DL (7-18); BUN/CREATININE RATIO 15.7 (10.0-20.0); CALCIUM 8.6 MG/DL (8.5-10.1); CHLORIDE 105 MMOL/L (99-107); CREATININE 0.83 MG/DL (0.40-0.90); GLUCOSE 173 MG/DL (70-104); MAGNESIUM 1.8 MG/DL (1.5-2.4); PRO BRAIN NATRIURETIC PEPTIDE 470 PG/ML (0-125); SODIUM 138 MMOL/L (135-145); TOTAL CARBON DIOXIDE 29.2 MMOL/L (24-32); TOTAL PROTEIN 6.1 G/DL (6.4-8.2); eCRCL 59 ML/MIN; eGFR 68 ML/MIN
[2023-03-20] MEDS ORDERED: amLODIPine 5mg tablet PO SCH (08:00)
[2023-03-20] MEDS: sod chloride 0.9% 10ml flush syringe IV SCH ×2 (08:00)
[2023-03-20] MEDS ORDERED: losartan 50mg tablet PO SCH (08:00)
[2023-03-20] MEDS ORDERED: potassium chloride 8mEq ER tablet PO SCH (08:00)
[2023-03-20] MEDS ORDERED: apixaban 5mg tablet PO SCH (08:00)
[2023-03-20] MEDS: gabapentin 300mg capsule PO SCH (08:35)
[2023-03-20] MEDS: sotalol HCl 40mg (1/2 tablet) PO SCH (08:37)
--- NOTE | 2023-03-20 14:55 | NUR ---
All written and verbal orders for D/C given. Watchman aftercare restrictions and wound care reviewed. [facility] JULIAN CDI. Pt stated she had all belongings. Home with friend. Addendum: 03/20/23 at 1520 by Zeny Hernandez RN Amended: Links added.
== END 2023-03-20 15:03 | disposition home or self-care (01) | DRG 274 ==
LOC: PAS IN 09:19 → PCU 3S 23:00
PROVIDERS: ADMIT Student in an Organized Health Care Education/Training Program; ATTEND Student in an Organized Health Care Education/Training Program
PROC: B24BZZ4 Ultrasonography of Heart with Aorta, Transesophageal (ICD-10-PCS; 2023-03-19)
PROC: 03HC33Z Insertion of Infusion Device into Left Radial Artery, Percutaneous Approach (ICD-10-PCS; 2023-03-19)
PROC: 02L73DK Occlusion of Left Atrial Appendage with Intraluminal Device, Percutaneous Approach (ICD-10-PCS; principal; 2023-03-19 18:28)
DX: I48.91 Unspecified atrial fibrillation (principal); Z00.6 Encounter for examination for normal comparison and control in clinical research program
CPT/HCPCS: 33340; 36415; 71045; 71046; 76937; 80053; 81001; 82948; 83735; 83880; 85025; 85347; 85610; 85730; 86885; 86900; 86901; 86920; 87081; 87088; 93005; 93308; 93312; 93325; 94640; 94760; A4615; A4618; A6258; A6449; C1760; C1889; C1893; C1894; G0378; J0690; J1100; J1644; J2250; J2405; J2704; J3010; J3370; J3490; J7030; J7040; J7120; P9016; Q9967

== ENCOUNTER 2023-04-29 09:17 | Outpatient (CLI) | payer MEDICARE, MEDICAID ==
[~2023-04-29 09:17] MED LIST changes: -DOCUMENT DATE & TIME OF BETA-BLOCKER PO ONE; +SOTA80TA73 PO; -albuterol 2.5 MG/3 ML nebule NEB ONE; -cefazolin 2gm/D5W 100mL 100 ML IV ONE; -famotidine 20mg tablet PO ONE; -ondansetron/PF 4mg/2ml inj IV PRN; -ringers solution, lacted 1,000 ML IV SCH; -vancomycin 1,500 MG in NS 300ml IV soln IV ONE
[2023-04-29 09:43] LABS: BASOPHILS # (AUTO) 0.2 X10'3 (0-0.2); BASOPHILS % (AUTO) 1.8 % (0-1); EOSINOPHILS # (AUTO) 0.2 X10'3 (0-0.9); EOSINOPHILS % (AUTO) 2.2 % (0-6); HEMATOCRIT 37.2 % (35.0-45.0); HEMOGLOBIN 12.2 g/dl (12.0-16.0); LYMPHOCYTES # (AUTO) 1.8 X10'3 (1.1-4.8); LYMPHOCYTES % (AUTO) 20.3 % (21-51); MEAN CORPUSCULAR HEMOGLOBIN 28.4 PG (27.0-31.0); MEAN CORPUSCULAR HGB CONC 32.7 g/dL (33.0-36.5); MEAN PLATELET VOLUME 7.7 FL (7.4-10.4); MONOCYTES # (AUTO) 0.8 X10'3 (0-0.9); MONOCYTES % (AUTO) 9.7 % (2-12); NEUTROPHILS # (AUTO) 5.7 X10'3 (1.8-7.7); PLATELET COUNT 415 X10'3 (140-440); RED BLOOD COUNT 4.27 X10'6 (4.20-5.60); RED CELL DISTRIBUTION WIDTH 16.8 % (11.5-14.5); WHITE BLOOD COUNT 8.7 X10'3 (4.5-11.0)
[2023-04-29 10:05] LABS: APTT 36 SECONDS (22-32); PROTHROMBIN TIME 11.2 SECONDS (9.0-12.0)
[2023-04-29 10:07] LABS: ALANINE AMINOTRANSFERASE 15 U/L (12-78); ALBUMIN 3.3 G/DL (3.4-5.0); ALBUMIN/GLOBULIN RATIO 0.8 (1.1-1.5); ALKALINE PHOSPHATASE 129 IU/L (46-116); ANION GAP 8 (8-16); ASPARTATE AMINO TRANSFERASE 15 U/L (10-37); BILIRUBIN,TOTAL 0.4 MG/DL (0.1-1.0); BLOOD UREA NITROGEN 8 MG/DL (7-18); BUN/CREATININE RATIO 9.2 (10.0-20.0); CALCIUM 9.2 MG/DL (8.5-10.1); CHLORIDE 103 MMOL/L (99-107); CREATININE 0.87 MG/DL (0.40-0.90); GLUCOSE 129 MG/DL (70-104); POTASSIUM 3.9 MMOL/L (3.5-5.1); SODIUM 139 MMOL/L (135-145); TOTAL CARBON DIOXIDE 28.5 MMOL/L (24-32); TOTAL PROTEIN 7.2 G/DL (6.4-8.2); eGFR 64 ML/MIN
[2023-04-29] MEDS ORDERED: iohexol 350MG/ML 100ml bottle IV ONE (10:27)
== END 2023-04-29 23:59 | disposition home or self-care (01) ==
LOC: RAD 09:17
PROVIDERS: ATTEND Student in an Organized Health Care Education/Training Program
DX: I48.91 Unspecified atrial fibrillation (principal); I25.10 Atherosclerotic heart disease of native coronary artery without angina pectoris; Z95.818 Presence of other cardiac implants and grafts
CPT/HCPCS: 36415; 75574; 80053; 85025; 85610; 85730; J3490; Q9967